=== PATIENT | female | born 1985 | race Two or more races ===

== ENCOUNTER 2017-04-21 19:06 | Emergency (ER) | payer BC, OTHER ==
[2017-04-21 19:16] VITALS: RESP 18
[2017-04-21 19:33] LABS: Glucose,Whole Blood 217 mg/dL (75-99)
[2017-04-21] MEDS ORDERED: predniSONE 20 MG TAB PO STA (19:51)
[2017-04-21] MEDS ORDERED: valACYclovir HCL 1,000 MG TABLET PO STA (19:54)
--- NOTE | 2017-04-21 19:57 | ED ---
General Adult HPI - General Chief complaint: Neuro Symptoms/Deficit Stated complaint: TIA Symptoms Time Seen by Provider: 04/21/17 19:20 Source: patient, RN notes reviewed, old records reviewed Mode of arrival: wheelchair Limitations: no limitations - History of Present Illness Initial comments: This is a 31-year-old female to the ER for evaluation of neurological complaint. Left-sided facial paralysis. Patient has a Medical history including PCO S, high blood pressure high cholesterol and diabetes. Patient had a 2 hour onset of left-sided facial paralysis, no limb or hand or leg deficit. No problems with speech. No problems swallowing. Patient states she cannot close her left eye. She has tried drinking which makes food tasted weird. Mild drooling. Patient denies any trauma. Patient states she has had history of similar symptoms before on the right side at the time called a TIA. She was admitted as Hospital 2 years ago for those symptoms. Patient denies any other complaints or headache - Related Data Home Medications Medication Instructions Recorded Confirmed ALPRAZolam [Xanax] 0.5 mg PO TID PRN 05/31/14 09/30/14 Cholecalciferol [Vitamin D3] 1,000 unit PO DAILY 05/31/14 09/30/14 FLUoxetine HCL [PROzac] 60 mg PO DAILY 05/31/14 09/30/14 Meloxicam [Mobic] 15 mg PO DAILY 05/31/14 09/30/14 Topiramate [Topamax] 25 mg PO BID 05/31/14 09/30/14 clonazePAM [KlonoPIN] 0.5 mg PO DAILY 05/31/14 09/30/14 sitaGLIPtin PHOS/metFORMIN HCL 50 - 1,000 mg PO AC-BID 05/31/14 09/30/14 [Janumet 50-1,000 mg Tablet] Previous Rx's Medication Instructions Recorded INSULIN LISPRO (humaLOG) [humaLOG 5 unit SQ AC-TID #1 vial 10/02/14 (formulary)] Insulin Glargine [Lantus] 18 unit SQ HS #1 vial 10/02/14 Verapamil Sr [Isoptin Sr] 240 mg PO DAILY #30 tablet.er 10/02/14 predniSONE 100 mg PO DAILY #14 tab 04/21/17 valACYclovir HCL [Valtrex] 1,000 mg PO Q8HR #21 tab 04/21/17 Allergies Allergy/AdvReac Type Severity Reaction Status Date / Time amlodipine besylate Allergy DIZZINESS Verified 04/21/17 19:16 [From [facility]] Review of Systems ROS Statement: Those systems with pertinent positive or pertinent negative responses have been documented in the HPI. ROS Other: All systems not noted in ROS Statement are negative. Past Medical History Past Medical History: Asthma, CVA/TIA, Diabetes Mellitus, Hyperlipidemia, Hypertension, Osteoarthritis (OA) Additional Past Medical History / Comment(s): vitamin d and B12 deficiency. 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 History of Any Multi-Drug Resistant Organisms: None Reported Past Surgical History: No Surgical Hx Reported Past Anesthesia/Blood Transfusion Reactions: No Reported Reaction Past Psychological History: Anxiety, Depression, Panic Disorder Smoking Status: Never smoker Past Alcohol Use History: None Reported Past Drug Use History: None Reported - Past Family History Mother Family Medical History: Diabetes Mellitus General Exam - General Exam Comments Initial Comments: Patient has left-sided facial paralysis, inability to close left eye, inability to raise left eyebrow, forehead paralysis Limitations: no limitations General appearance: alert, in no apparent distress Head exam: Present: atraumatic, normocephalic, normal inspection Eye exam: Present: normal appearance, PERRL, EOMI. Absent: scleral icterus, conjunctival injection, periorbital swelling ENT exam: Present: normal exam, mucous membranes moist Neck exam: Present: normal inspection. Absent: tenderness, meningismus, lymphadenopathy Respiratory exam: Present: normal lung sounds bilaterally. Absent: respiratory distress, wheezes, rales, rhonchi, stridor Cardiovascular Exam: Present: regular rate, normal rhythm, normal heart sounds. Absent: systolic murmur, diastolic murmur, rubs, gallop, clicks GI/Abdominal exam: Present: soft, normal bowel sounds. Absent: distended, tenderness, guarding, rebound, rigid Extremities exam: Present: normal inspection, full ROM, normal capillary refill. Absent: tenderness, pedal edema, joint swelling, calf tenderness Back exam: Present: normal inspection Neurological exam: Present: alert, oriented X3, CN II-XII intact Psychiatric exam: Present: normal affect, normal mood Skin exam: Present: warm, dry, intact, normal color. Absent: rash Course Vital Signs 04/21/17 19:14 Temperature 99.3 F Pulse Rate 103 H Respiratory 18 Rate Blood Pressure 163/88 O2 Sat by Pulse 98 Oximetry - Reevaluation(s) Reevaluation #1: 04/21/17 19:55 Medical record is thoroughly reviewed and patient's prior ER visit for SVT, TIA is reviewed, echo, CT brain Reevaluation #2: 04/21/17 19:56 Patient does have significant cardiovascular risk factors, there is no limb involvement in the forehead is also involved Medical Decision Making - Medical Decision Making 31-year-old Female the ER for evaluation. Patient presents today for evaluation regarding neuro deficit. Patient has positive Arredondo's palsy. Left- sided Arredondo's palsy. Patient does have 400 for else is unable to close left eye and unable to move left side of face. Patient will follow-up as an outpatient with family doctor, started on anti-viral medication as well as prednisone - Lab Data Lab Results 04/21/17 Range/Units 19:26 POC Glucose (mg/dL) 217 H (75-99) mg/dL POC Glu Consumer Safety Inspector ID Odilia Hay Disposition Clinical Impression: Arredondo's palsy Disposition: HOME SELF-CARE Condition: Good Instructions: Arredondo Palsy (ED) Prescriptions: predniSONE 100 mg PO DAILY #14 tab valACYclovir HCL [Valtrex] 1,000 mg PO Q8HR #21 tab Referrals: Garett Byers MD [Primary Care Provider] - 1-2 days
[2017-04-21 20:08] VITALS: BP 165/88; PULSE 100
[2017-04-21 20:15] VITALS: TEMP 98.5
== END 2017-04-21 20:19 | disposition home or self-care (01) ==
LOC: EC 19:06
DX: G51.0 Bell's palsy (principal); E11.9 Type 2 diabetes mellitus without complications; J45.909 Unspecified asthma, uncomplicated; M19.90 Unspecified osteoarthritis, unspecified site; F41.9 Anxiety disorder, unspecified; F32.9 Major depressive disorder, single episode, unspecified; Z86.73 Personal history of transient ischemic attack (TIA), and cerebral infarction without residual deficits; Z79.1 Long term (current) use of non-steroidal anti-inflammatories (NSAID); Z79.84 Long term (current) use of oral hypoglycemic drugs; Z79.899 Other long term (current) drug therapy; Z88.8 Allergy status to other drugs, medicaments and biological substances
CPT/HCPCS: 99284 ×2; 36415; J7512; 93005

== ENCOUNTER 2018-02-15 13:21 | Emergency (ER) | payer OTHER ==
[2018-02-15] MEDS ORDERED: SODIUM CHLORIDE 0.9% 1,000 ML IV STA (13:45)
--- NOTE | 2018-02-15 14:15 | ED ---
General Adult HPI - General Chief complaint: Overdose Stated complaint: Overdose Time Seen by Provider: 02/15/18 13:46 Source: patient, RN notes reviewed, old records reviewed Mode of arrival: ambulatory Limitations: no limitations - History of Present Illness Initial comments: 32-year-old female presents with suicide attempt. Patient took approximately 20 -30 Lexapro prior to arrival. She was having an argument with her boyfriend which prompted her to ingest these pills. She did self induce vomiting and threw up approximately 15 pills. Patient has no complaints at the time my evaluation, no abdominal pain, no nausea vomiting. No fever or chills. She denies any other ingestion. She is feeling depressed and suicidal. Ingestion was approximately one hour prior to arrival. - Related Data Home Medications Medication Instructions Recorded Confirmed ALPRAZolam [Xanax] 0.5 mg PO TID PRN 05/31/14 02/15/18 Meloxicam [Mobic] 15 mg PO DAILY 05/31/14 02/15/18 sitaGLIPtin PHOS/metFORMIN HCL 1 tab PO AC-BID 05/31/14 02/15/18 [Janumet 50-1,000 mg Tablet] Aspirin EC [Ecotrin Low Dose] 81 mg PO DAILY 02/15/18 02/15/18 Atorvastatin Calcium [Lipitor] 20 mg PO HS 02/15/18 02/15/18 Clopidogrel Bisulfate [Plavix] 75 mg PO DAILY 02/15/18 02/15/18 Hydrochlorothiazide [Hydrodiuril] 25 mg PO DAILY 02/15/18 02/15/18 Lisinopril [Zestril] 20 mg PO DAILY 02/15/18 02/15/18 Previous Rx's Medication Instructions Recorded Verapamil Sr [Isoptin Sr] 240 mg PO DAILY #30 tablet.er 10/02/14 Allergies Allergy/AdvReac Type Severity Reaction Status Date / Time amlodipine besylate AdvReac Vertigo/"Funny Verified 02/15/18 14:32 [From [facility]] feeling" Review of Systems ROS Statement: Those systems with pertinent positive or pertinent negative responses have been documented in the HPI. ROS Other: All systems not noted in ROS Statement are negative. Past Medical History Past Medical History: Asthma, CVA/TIA, Diabetes Mellitus, Hyperlipidemia, Hypertension, Osteoarthritis (OA) Additional Past Medical History / Comment(s): vitamin d and B12 deficiency. 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 History of Any Multi-Drug Resistant Organisms: None Reported Past Surgical History: No Surgical Hx Reported Past Anesthesia/Blood Transfusion Reactions: No Reported Reaction Past Psychological History: Anxiety, Depression, Panic Disorder Smoking Status: Never smoker Past Alcohol Use History: None Reported Past Drug Use History: None Reported - Past Family History Mother Family Medical History: Diabetes Mellitus General Exam Limitations: no limitations General appearance: alert, in no apparent distress Head exam: Present: atraumatic, normocephalic Eye exam: Present: normal appearance, PERRL ENT exam: Present: normal exam Neck exam: Present: normal inspection. Absent: tenderness, meningismus Respiratory exam: Present: normal lung sounds bilaterally. Absent: respiratory distress, wheezes Cardiovascular Exam: Present: regular rate, normal rhythm GI/Abdominal exam: Present: soft. Absent: distended, tenderness Extremities exam: Present: normal inspection Neurological exam: Present: alert, oriented X3, CN II-XII intact. Absent: motor sensory deficit Psychiatric exam: Present: depressed, flat affect, suicidal ideation Skin exam: Present: warm, dry, intact. Absent: cyanosis, diaphoretic Course Vital Signs 02/15/18 02/15/18 02/15/18 13:37 15:34 16:00 Temperature 98.1 F Pulse Rate 73 70 72 Respiratory 18 16 16 Rate Blood Pressure 137/85 148/93 154/64 O2 Sat by Pulse 94 L 98 98 Oximetry 02/15/18 02/15/18 18:00 19:14 Temperature 98 F Pulse Rate 80 71 Respiratory 16 17 Rate Blood Pressure 155/100 155/81 O2 Sat by Pulse 95 97 Oximetry - Reevaluation(s) Reevaluation #1: 02/15/18 15:39 Patient is medically cleared awaiting EPS evaluation. EKG Findings - EKG Comments: EKG Findings:: EKG: Normal sinus rhythm, rate of 76, MT interval 144, QRS duration 84 and QTC 362. Repeat EKG obtained at 1532, normal sinus rhythm, prolonged QT, rate of 70, MT interval 148, QRS duration 86, QTC 452, QTC 488. Medical Decision Making - Medical Decision Making 32-year-old female presenting as overdose and suicide attempt. Patient appears well, normal EKG, normal electrolytes, EDC, CMP unremarkable, urinalysis is positive for greater than 182 RBCs however patient is currently menstruating. Case is discussed with poison control, recommend repeat EKG and supportive care. She is observed in the emergency department for 6 hours with no change in her mental status. Poison control agree with medical clearance after 6 hours. Patient is evaluated by EPS, it is felt patient is safe for discharge. She will be discharged with her mother who will monitor her medications and will stay with the patient for the next several days. She does deny continued suicidal ideation when I reevaluated her. She will be discharged home with outpatient follow-up. - Lab Data Result diagrams: 02/15/18 14:08 02/15/18 14:08 Lab Results 02/15/18 02/15/18 02/15/18 Range/Units 14:08 14:08 14:08 WBC 7.7 (3.8-10.6) k/uL RBC 5.16 (3.80-5.40) m/uL Hgb 14.9 (11.4-16.0) gm/dL Hct 46.7 H (34.0-46.0) % MCV 90.5 (80.0-100.0) fL MCH 29.0 (25.0-35.0) pg MCHC 32.0 (31.0-37.0) g/dL RDW 14.1 (11.5-15.5) % Plt Count 229 (150-450) k/uL Neutrophils % 72 % Lymphocytes % 21 % Monocytes % 4 % Eosinophils % 1 % Basophils % 0 % Neutrophils # 5.5 (1.3-7.7) k/uL Lymphocytes # 1.6 (1.0-4.8) k/uL Monocytes # 0.3 (0-1.0) k/uL Eosinophils # 0.1 (0-0.7) k/uL Basophils # 0.0 (0-0.2) k/uL PT (9.0-12.0) sec INR (<1.2) Sodium 141 (137-145) mmol/L Potassium 4.4 (3.5-5.1) mmol/L Chloride 108 H (98-107) mmol/L Carbon Dioxide 26 (22-30) mmol/L Anion Gap 7 mmol/L BUN 15 (7-17) mg/dL Creatinine 0.50 L (0.52-1.04) mg/dL Est GFR (CKD-EPI)AfAm >90 (>60 ml/min/1.73 sqM) Est GFR (CKD-EPI)NonAf >90 (>60 ml/min/1.73 sqM) Glucose 160 H (74-99) mg/dL Plasma Lactic Acid Jeffrey (0.7-2.0) mmol/L Calcium 9.1 (8.4-10.2) mg/dL Magnesium (1.6-2.3) mg/dL Total Bilirubin 0.6 (0.2-1.3) mg/dL AST 17 (14-36) U/L ALT 24 (9-52) U/L Alkaline Phosphatase 73 (38-126) U/L Creatine Kinase (30-135) U/L CK-MB (CK-2) (0.0-2.4) ng/mL Total Protein 7.0 (6.3-8.2) g/dL Albumin 4.2 (3.5-5.0) g/dL Urine Color Light Red Urine Appearance Turbid H (Clear) Urine pH 5.5 (5.0-8.0) Ur Specific [place] 1.023 (1.001-1.035) Urine Protein 2+ H (Negative) Urine Glucose (UA) Trace H (Negative) Urine Ketones Negative (Negative) Urine Blood Large H (Negative) Urine Nitrite Negative (Negative) Urine Bilirubin Negative (Negative) Urine Urobilinogen <2.0 (<2.0) mg/dL Ur Leukocyte Esterase Trace H (Negative) Urine RBC >182 H (0-5) /hpf Urine WBC 18 H (0-5) /hpf Ur Squamous Epith Cells 21 H (0-4) /hpf Urine Bacteria Rare H (None) /hpf Urine Mucus Few H (None) /hpf Urine HCG, Qual (Not Detectd) Salicylates <1.0 mg/dL Urine Opiates Screen Not Detected (NotDetected) Ur Oxycodone Screen Not Detected (NotDetected) Urine Methadone Screen Not Detected (NotDetected) Ur Propoxyphene Screen Not Detected (NotDetected) Acetaminophen <10.0 ug/mL Ur Barbiturates Screen Not Detected (NotDetected) U Tricyclic Antidepress Not Detected (NotDetected) Ur Phencyclidine Scrn Not Detected (NotDetected) Ur Amphetamines Screen Not Detected (NotDetected) U Methamphetamines Scrn Not Detected (NotDetected) U Benzodiazepines Scrn Not Detected (NotDetected) Urine Cocaine Screen Not Detected (NotDetected) U Marijuana (THC) Screen Detected H (NotDetected) Serum Alcohol <10 mg/dL 02/15/18 02/15/18 02/15/18 Range/Units 14:08 14:08 14:08 WBC (3.8-10.6) k/uL RBC (3.80-5.40) m/uL Hgb (11.4-16.0) gm/dL Hct (34.0-46.0) % MCV (80.0-100.0) fL MCH (25.0-35.0) pg MCHC (31.0-37.0) g/dL RDW (11.5-15.5) % Plt Count (150-450) k/uL Neutrophils % % Lymphocytes % % Monocytes % % Eosinophils % % Basophils % % Neutrophils # (1.3-7.7) k/uL Lymphocytes # (1.0-4.8) k/uL Monocytes # (0-1.0) k/uL Eosinophils # (0-0.7) k/uL Basophils # (0-0.2) k/uL PT 9.9 (9.0-12.0) sec INR 1.0 (<1.2) Sodium (137-145) mmol/L Potassium (3.5-5.1) mmol/L Chloride (98-107) mmol/L Carbon Dioxide (22-30) mmol/L Anion Gap mmol/L BUN (7-17) mg/dL Creatinine (0.52-1.04) mg/dL Est GFR (CKD-EPI)AfAm (>60 ml/min/1.73 sqM) Est GFR (CKD-EPI)NonAf (>60 ml/min/1.73 sqM) Glucose (74-99) mg/dL Plasma Lactic Acid Jeffrey 0.9 (0.7-2.0) mmol/L Calcium (8.4-10.2) mg/dL Magnesium (1.6-2.3) mg/dL Total Bilirubin (0.2-1.3) mg/dL AST (14-36) U/L ALT (9-52) U/L Alkaline Phosphatase (38-126) U/L Creatine Kinase (30-135) U/L CK-MB (CK-2) (0.0-2.4) ng/mL Total Protein (6.3-8.2) g/dL Albumin (3.5-5.0) g/dL Urine Color Urine Appearance (Clear) Urine pH (5.0-8.0) Ur Specific [place] (1.001-1.035) Urine Protein (Negative) Urine Glucose (UA) (Negative) Urine Ketones (Negative) Urine Blood (Negative) Urine Nitrite (Negative) Urine Bilirubin (Negative) Urine Urobilinogen (<2.0) mg/dL Ur Leukocyte Esterase (Negative) Urine RBC (0-5) /hpf Urine WBC (0-5) /hpf Ur Squamous Epith Cells (0-4) /hpf Urine Bacteria (None) /hpf Urine Mucus (None) /hpf Urine HCG, Qual Not Detected (Not Detectd) Salicylates mg/dL Urine Opiates Screen (NotDetected) Ur Oxycodone Screen (NotDetected) Urine Methadone Screen (NotDetected) Ur Propoxyphene Screen (NotDetected) Acetaminophen ug/mL Ur Barbiturates Screen (NotDetected) U Tricyclic Antidepress (NotDetected) Ur Phencyclidine Scrn (NotDetected) Ur Amphetamines Screen (NotDetected) U Methamphetamines Scrn (NotDetected) U Benzodiazepines Scrn (NotDetected) Urine Cocaine Screen (NotDetected) U Marijuana (THC) Screen (NotDetected) Serum Alcohol mg/dL 02/15/18 02/15/18 02/15/18 Range/Units 14:08 14:08 14:08 WBC (3.8-10.6) k/uL RBC (3.80-5.40) m/uL Hgb (11.4-16.0) gm/dL Hct (34.0-46.0) % MCV (80.0-100.0) fL MCH (25.0-35.0) pg MCHC (31.0-37.0) g/dL RDW (11.5-15.5) % Plt Count (150-450) k/uL Neutrophils % % Lymphocytes % % Monocytes % % Eosinophils % % Basophils % % Neutrophils # (1.3-7.7) k/uL Lymphocytes # (1.0-4.8) k/uL Monocytes # (0-1.0) k/uL Eosinophils # (0-0.7) k/uL Basophils # (0-0.2) k/uL PT (9.0-12.0) sec INR (<1.2) Sodium (137-145) mmol/L Potassium (3.5-5.1) mmol/L Chloride (98-107) mmol/L Carbon Dioxide (22-30) mmol/L Anion Gap mmol/L BUN (7-17) mg/dL Creatinine (0.52-1.04) mg/dL Est GFR (CKD-EPI)AfAm (>60 ml/min/1.73 sqM) Est GFR (CKD-EPI)NonAf (>60 ml/min/1.73 sqM) Glucose (74-99) mg/dL Plasma Lactic Acid Jeffrey (0.7-2.0) mmol/L Calcium (8.4-10.2) mg/dL Magnesium 1.6 (1.6-2.3) mg/dL Total Bilirubin (0.2-1.3) mg/dL AST (14-36) U/L ALT (9-52) U/L Alkaline Phosphatase (38-126) U/L Creatine Kinase 39 (30-135) U/L CK-MB (CK-2) 0.5 (0.0-2.4) ng/mL Total Protein (6.3-8.2) g/dL Albumin (3.5-5.0) g/dL Urine Color Urine Appearance (Clear) Urine pH (5.0-8.0) Ur Specific [place] (1.001-1.035) Urine Protein (Negative) Urine Glucose (UA) (Negative) Urine Ketones (Negative) Urine Blood (Negative) Urine Nitrite (Negative) Urine Bilirubin (Negative) Urine Urobilinogen (<2.0) mg/dL Ur Leukocyte Esterase (Negative) Urine RBC (0-5) /hpf Urine WBC (0-5) /hpf Ur Squamous Epith Cells (0-4) /hpf Urine Bacteria (None) /hpf Urine Mucus (None) /hpf Urine HCG, Qual (Not Detectd) Salicylates mg/dL Urine Opiates Screen (NotDetected) Ur Oxycodone Screen (NotDetected) Urine Methadone Screen (NotDetected) Ur Propoxyphene Screen (NotDetected) Acetaminophen ug/mL Ur Barbiturates Screen (NotDetected) U Tricyclic Antidepress (NotDetected) Ur Phencyclidine Scrn (NotDetected) Ur Amphetamines Screen (NotDetected) U Methamphetamines Scrn (NotDetected) U Benzodiazepines Scrn (NotDetected) Urine Cocaine Screen (NotDetected) U Marijuana (THC) Screen (NotDetected) Serum Alcohol mg/dL Disposition Clinical Impression: Drug overdose, Depression Disposition: HOME SELF-CARE Condition: Good Instructions: Depression (ED), Adult Overdose (ED) Additional Instructions: Please follow up with community mental health, return with any worsening or changing symptoms. Is patient prescribed a controlled substance at d/c from ED?: No Referrals: Garett Byers MD [Primary Care Provider] - 1-2 days Time of Disposition: 18:45
[2018-02-15 14:41] LABS: Prothrombin Time 9.9 sec (9.0-12.0)
[2018-02-15 14:44] LABS: ALT 24 U/L (9-52); AST 17 U/L (14-36); Acetaminophen <10.0 ug/mL; Albumin 4.2 g/dL (3.5-5.0); Alcohol <10 mg/dL; Alkaline Phosphatase 73 U/L (38-126); Anion Gap 7 mmol/L; Blood Urea Nitrogen 15 mg/dL (7-17); Calcium 9.1 mg/dL (8.4-10.2); Carbon Dioxide 26 mmol/L (22-30); Chloride 108 mmol/L (98-107); Glucose 160 mg/dL (74-99); Potassium 4.4 mmol/L (3.5-5.1); Salicylate <1.0 mg/dL; Sodium 141 mmol/L (137-145); Total Bilirubin 0.6 mg/dL (0.2-1.3)
[2018-02-15 14:52] LABS: Basophils % (A) 0 %; Eosinophils # (A) 0.1 k/uL (0-0.7); Eosinophils % (A) 1 %; HCT 46.7 % (34.0-46.0); HGB 14.9 gm/dL (11.4-16.0); Lymphocytes # (A) 1.6 k/uL (1.0-4.8); Lymphocytes % (A) 21 %; MCV 90.5 fL (80.0-100.0); Monocytes # (A) 0.3 k/uL (0-1.0); Monocytes % (A) 4 %; Neutrophils # (A) 5.5 k/uL (1.3-7.7); Neutrophils % (A) 72 %; Platelet Count 229 k/uL (150-450); RBC 5.16 m/uL (3.80-5.40); RDW 14.1 % (11.5-15.5); WBC 7.7 k/uL (3.8-10.6)
[2018-02-15 14:54] LABS: Appearance,Urine Turbid (Clear); Bacteria,Urine Rare /hpf; Bilirubin,Urine Negative (Negative); Blood,Urine Large (Negative); Color,Urine Light Red; Glucose,Urine (UA) Trace (Negative); Ketones,Urine Negative (Negative); Leukocyte Esterase,Urine Trace (Negative); Mucus,Urine Few /hpf; Nitrite,Urine Negative (Negative); PH, Urine 5.5 (5.0-8.0); Protein,Urine 2+ (Negative); RBC,Urine >182 /hpf (0-5); Specific Gravity,Urine 1.023 (1.001-1.035); Squamous Epithelial Cell,Urine 21 /hpf (0-4); Urobilinogen,Urine <2.0 mg/dL (<2.0); WBC,Urine 18 /hpf (0-5)
[2018-02-15 15:15] LABS: Amphetamine Screen,Urine Not Detected (NotDetected); Barbiturate Screen,Urine Not Detected (NotDetected); Benzodiazepines Screen,Urine Not Detected (NotDetected); Cocaine Screen,Urine Not Detected (NotDetected); Methadone Screen, Urine Not Detected (NotDetected); Opiate Screen,Urine Not Detected (NotDetected); Oxycodone Screen, Urine Not Detected (NotDetected); Phencyclidine Screen,Urine Not Detected (NotDetected); Tricyclic Antidepressant,Urine Not Detected (NotDetected); Urn Cannabinoid Scrn Detected (NotDetected)
[2018-02-15] MEDS ORDERED: SODIUM CHLORIDE 0.9% 1,000 ML IV SCH (17:00)
[2018-02-15] MEDS ORDERED: ACETAMINOPHEN TAB 500 MG TAB PO STA (17:27)
[2018-02-15 18:24] VITALS: TEMP 98
[2018-02-15 19:15] VITALS: BP 155/81; PULSE 71; RESP 17
== END 2018-02-15 19:15 | disposition home or self-care (01) ==
LOC: EC 13:21
DX: T43.222A Poisoning by selective serotonin reuptake inhibitors, intentional self-harm, initial encounter (principal); F32.9 Major depressive disorder, single episode, unspecified; E11.9 Type 2 diabetes mellitus without complications; E78.5 Hyperlipidemia, unspecified; I10 Essential (primary) hypertension; M19.90 Unspecified osteoarthritis, unspecified site; F41.0 Panic disorder [episodic paroxysmal anxiety]; Z86.73 Personal history of transient ischemic attack (TIA), and cerebral infarction without residual deficits; Z79.82 Long term (current) use of aspirin; Z79.01 Long term (current) use of anticoagulants; Z79.1 Long term (current) use of non-steroidal anti-inflammatories (NSAID); Z79.899 Other long term (current) drug therapy; Z79.84 Long term (current) use of oral hypoglycemic drugs; Z88.8 Allergy status to other drugs, medicaments and biological substances
CPT/HCPCS: 36415; 80053; 80306; 80320; 81001; 81025; 82075; 82550; 82553; 83520; 83605; 83735; 85025; 85610; 93005; 96360; 96361; 99285

== ENCOUNTER → 2018-09-20 | Outpatient (CLI) | payer OTHER ==
--- NOTE | 2018-09-20 11:07 | XR ---
EXAMINATION TYPE: XR knee limited LT DATE OF EXAM: 09/20/2018 CLINICAL HISTORY: Pain for one week. TECHNIQUE: 2 views of the left knee are obtained. COMPARISON: None. FINDINGS: There is no acute fracture/dislocation evident in left knee. There is moderate medial tibi ofemoral and lateral tibiofemoral compartments spurring and narrowing. Mild lateral tibiofemoral com partment narrowing is seen. There are large spurs or calcifications from anterior superior and anteri or inferior patella. The overlying soft tissue appears unremarkable. IMPRESSION: As above, quite pronounced findings for patient's age.
== END | disposition home or self-care (01) ==
LOC: RADXRMAIN 10:09
PROVIDERS: ATTEND Nurse Practitioner Adult Health
DX: M25.562 Pain in left knee (principal)

== ENCOUNTER 2018-10-13 13:10 | Emergency (ER) | payer OTHER ==
[2018-10-13 13:17] VITALS: BP 153/88; PULSE 101; RESP 18; TEMP 97.6
[2018-10-13 13:31] LABS: Glucose,Whole Blood 269 mg/dL (75-99)
[2018-10-13 13:58] LABS: Basophils % (A) 1 %; Eosinophils # (A) 0.1 k/uL (0-0.7); Eosinophils % (A) 2 %; HGB 14.8 gm/dL (11.4-16.0); Lymphocytes # (A) 2.2 k/uL (1.0-4.8); Lymphocytes % (A) 29 %; MCH 28.8 pg (25.0-35.0); MCV 87.3 fL (80.0-100.0); Mean Platelet Volume 7.9; Monocytes # (A) 0.4 k/uL (0-1.0); Monocytes % (A) 6 %; Neutrophils # (A) 4.4 k/uL (1.3-7.7); Neutrophils % (A) 60 %; Platelet Count 229 k/uL (150-450); RBC 5.15 m/uL (3.80-5.40); RDW 14.6 % (11.5-15.5); WBC 7.3 k/uL (3.8-10.6)
[2018-10-13 14:01] LABS: ALT 40 U/L (9-52); AST 17 U/L (14-36); Albumin 3.8 g/dL (3.5-5.0); Alkaline Phosphatase 84 U/L (38-126); Anion Gap 7 mmol/L; Blood Urea Nitrogen 10 mg/dL (7-17); Calcium 9.1 mg/dL (8.4-10.2); Carbon Dioxide 31 mmol/L (22-30); Chloride 104 mmol/L (98-107); Glucose 285 mg/dL (74-99); Potassium 3.5 mmol/L (3.5-5.1); Sodium 142 mmol/L (137-145); Total Bilirubin 0.6 mg/dL (0.2-1.3); Total Protein 6.5 g/dL (6.3-8.2)
--- NOTE | 2018-10-13 14:05 | CT ---
EXAMINATION TYPE: CT brain wo con for TPA DATE OF EXAM: 10/13/2018 COMPARISON: 09/30/2014 INDICATION: Lt facial droop. DLP: 3276.8 (brain, CTA head and neck) mGycm, Automated exposure control for dose reduction was used. CONTRAST: None CT of the brain is performed utilizing 3 mm thick sections through the posterior fossa and 3 mm thick sections through the remaining calvarium. Study is performed within 24 hours of arrival to the hosp ital. No abnormal hyperdensity is present to suggest an acute intracranial hemorrhage. No mass lesion is evident. There is interval development of hypodensity in the periventricular white matter. Some subcortical hy podensity is in the left frontal lobe. Series 201 image 27. Findings are nonspecific but could be rel ated to microvascular ischemic change. Subcortical infarcts could be considered. No edema is evident suggesting these are more likely old. Adjacent to the left frontal lobe near the anterior horn is a p unctate hyperdensity measuring 0.2 cm and 67 Hounsfield units. Small calcification is suspected. Carcamo lew, small petechial hemorrhage is also within the differential. Report was called case discussed wit h Dr. Wise by Dr. Escobedo at the time of 1359 10/13/2018. In discussion, patient reports history of a brain mass. This area could be associated with patient's reported mass which may be associated with the calcification. Discrete mass however is not identified. Ventricles and sulci are appropriate for the patient age. Paranasal sinuses and mastoid air cells within the [id number] are clear. IMPRESSIONS: 1. Scattered periventricular white matter hypodensities likely related to more chronic white matter ischemic changes. 2. There is a punctate hyperdensity in the left nunez radiata measuring 67 Hounsfield units. Petechi al hemorrhage is not entirely excluded. MRI may be useful for further differentiation. Patient is rep orted to have a brain mass on the left side. This is not clearly delineated on the current imaging, b ut may be associated with this calcification.
[2018-10-13 14:08] LABS: INR 0.9 (<1.2); Prothrombin Time 9.6 sec (9.0-12.0)
[2018-10-13 14:13] LABS: Partial Thromboplastin Time 21.4 sec (22.0-30.0)
--- NOTE | 2018-10-13 14:18 | ED ---
Neuro HPI - General Chief Complaint: Neuro Symptoms/Deficit Stated Complaint: facial droop Time Seen by Provider: 10/13/18 13:24 Source: patient Mode of arrival: ambulatory Limitations: no limitations - History of Present Illness Is the patient presenting with stroke symptoms?: Yes Last Known Well Date: 10/13/18 Last Known Well Time: 11:30 (onset 11:45) Onset/Timin -: hour(s) Initial Comments: 33-year-old female past history of hypertension, previous CVA, Arredondo's palsy, MS, diabetes presents today for chief complaint of right-sided facial droop 2 hours. Patient states that she's had multiple diagnoses in the past as far as neurological past medical history. Patient states she's had a previous CVA with residual speech deficits. Patient states there has been no changes in her speech today however around 11:45 AM she noted right-sided facial droop of the lower aspect of her face. She states she is unsure if this is her Arredondo's palsy or possible stroke and presents emergency department for evaluation. Patient de nies any headache nausea, vomiting, dizziness. She denies any head injury she denies any numbness tingling or loss sensation of the face upper or lower extremities. Patient denies any difficulty walking. Patient denies any diplopia or visual change or vision loss, difficulty forming sentences, memory changes. Patient states she has not been compliant with her blood pressure medications. Patient does have significant elevation of blood pressure upon arrival today. Patient denies history of aneurysm. Patient states she has not seen a neurologist in quite some time however has been evaluated by her primary care provider. Remaining review of systems negative. Upon arrival HR and BP mildly elevated .Pt appears well no acute distess. Obvious right lower facial droop. Patient denies experiencing any symptoms prior to onset today. - Related Data Home Medications: Home Medications Medication Instructions Recorded Confirmed ALPRAZolam [Xanax] 0.5 mg PO TID PRN 05/31/14 10/13/18 Meloxicam [Mobic] 15 mg PO DAILY 05/31/14 10/13/18 sitaGLIPtin PHOS/metFORMIN HCL 1 tab PO AC-BID 05/31/14 10/13/18 [Janumet 50-1,000 mg Tablet] Aspirin EC [Ecotrin Low Dose] 81 mg PO DAILY 02/15/18 10/13/18 Atorvastatin Calcium [Lipitor] 20 mg PO HS 02/15/18 10/13/18 Clopidogrel Bisulfate [Plavix] 75 mg PO DAILY 02/15/18 10/13/18 Hydrochlorothiazide [Hydrodiuril] 25 mg PO DAILY 02/15/18 10/13/18 Lisinopril [Zestril] 20 mg PO DAILY 02/15/18 10/13/18 Cholecalciferol [Vitamin D3] 1,000 unit PO DAILY 10/13/18 10/13/18 Cyanocobalamin (Vitamin B-12) 1,000 mcg PO DAILY 10/13/18 10/13/18 [Vitamin B-12] Empagliflozin [Jardiance] 25 mg PO DAILY 10/13/18 10/13/18 Escitalopram [Lexapro] 20 mg PO DAILY 10/13/18 10/13/18 Loratadine [Claritin] 10 mg PO DAILY 10/13/18 10/13/18 QUEtiapine [SEROquel] 50 mg PO HS 10/13/18 10/13/18 busPIRone HCl [Buspar] 10 mg PO BID 10/13/18 10/13/18 lamoTRIgine [LaMICtal] 25 mg PO DAILY 10/13/18 10/13/18 Previous Rx's Medication Instructions Recorded Verapamil Sr [Isoptin Sr] 240 mg PO DAILY #30 tablet.er 10/02/14 Allergies/Adverse Reactions: Allergies Allergy/AdvReac Type Severity Reaction Status Date / Time amlodipine besylate AdvReac Vertigo/"Funny Verified 10/13/18 13:44 [From [facility]] feeling" Review of Systems ROS Statement: Those systems with pertinent positive or pertinent negative responses have been documented in the HPI. ROS Other: All systems not noted in ROS Statement are negative. General Exam - General Exam Comments Initial Comments: General: The patient is awake and alert, in no distress. Eye: +3 mm pupils are equal, round and reactive to light, extra-ocular movements are intact. No APD, no disconjugate gaze. No nystagmus. There is normal conjunctiva bilaterally. No signs of icterus. Ears, nose, mouth and throat: There are moist mucous membranes and no oral lesions. Neck: The neck is supple, there is no tenderness or JVD. Cardiovascular: There is a regular rate and rhythm. No murmur, rub or gallop is appreciated. Respiratory: Lungs are clear to auscultation, respirations are non-labored, breath sounds are equal. No wheezes, stridor, rales, or rhonchi. Gastrointestinal: Obese, Soft, non-distended, non-tender abdomen without masses or organomegaly noted. There is no rebound or guarding present. Bowel sounds are unremarkable. Musculoskeletal: Normal ROM, no tenderness. Strength 5/5. Sensation intact. Radial pulses equal bilaterally 2+. Neurological: A&O x 3. CN II-XII intact aside from right lower facial droop that is forehead sparing, mild in nature, memory intact to immediately, intermediate and group home recall. Able to follow simple verbal. Able to name a common object (pen). High quality, labial (pa) and lingual (la) speech. Low quality posterior pharynx/larynx (ga) voice sounds. Able to express general knowledge (days in a week). No hemineglect or inattention noted. Finger agnosia (-) and spatially oriented. Light touch and temperature sensation present over the face, chest, abdomen, back, UE bilaterally, and LE bilaterally. Able to localize point during point localization b/l and extinction. No visible bulk atrophy, hypertrophy, fasciculations, or myoclonus of the UE or LE b/l. Full PROM in UE and LE b/l. Bilateral muscle strength 5/5 for the following muscles: deltoid, biceps, triceps, brachioradialis, wrist extensors/flexor, hip flexor, hip abductors/adductors, hamstrings, quadriceps, feet dorsiflexors/plantar flexors. Finger to nose, finger to the examiners finger, and heel to warren coordinated and accurate b/l. Coordinated and even demonstration of hand flip, finger to thumb, and toe tap b/l. (-) Romberg. (-) pronator drift. No nuchal rigidity. (-) Brudzinskis and Kernig signs. Skin: Skin is warm and dry and no rashes or lesions are noted. Psychiatric: Cooperative, appropriate mood & affect, normal judgment. Limitations: no limitations Stroke MDM - Lab Data Result diagrams: 10/13/18 13:35 10/13/18 13:35 Lab Results 10/13/18 10/13/18 10/13/18 Range/Units 13:30 13:35 13:35 WBC 7.3 (3.8-10.6) k/uL RBC 5.15 (3.80-5.40) m/uL Hgb 14.8 (11.4-16.0) gm/dL Hct 45.0 (34.0-46.0) % MCV 87.3 (80.0-100.0) fL MCH 28.8 (25.0-35.0) pg MCHC 33.0 (31.0-37.0) g/dL RDW 14.6 (11.5-15.5) % Plt Count 229 (150-450) k/uL Neutrophils % 60 % Lymphocytes % 29 % Monocytes % 6 % Eosinophils % 2 % Basophils % 1 % Neutrophils # 4.4 (1.3-7.7) k/uL Lymphocytes # 2.2 (1.0-4.8) k/uL Monocytes # 0.4 (0-1.0) k/uL Eosinophils # 0.1 (0-0.7) k/uL Basophils # 0.0 (0-0.2) k/uL PT (9.0-12.0) sec INR (<1.2) APTT (22.0-30.0) sec Sodium 142 (137-145) mmol/L Potassium 3.5 (3.5-5.1) mmol/L Chloride 104 (98-107) mmol/L Carbon Dioxide 31 H (22-30) mmol/L Anion Gap 7 mmol/L BUN 10 (7-17) mg/dL Creatinine 0.50 L (0.52-1.04) mg/dL Est GFR (CKD-EPI)AfAm >90 (>60 ml/min/1.73 sqM) Est GFR (CKD-EPI)NonAf >90 (>60 ml/min/1.73 sqM) Glucose 285 H (74-99) mg/dL POC Glucose (mg/dL) 269 H (75-99) mg/dL POC Glu Babbitter ID Delores Stringer A Calcium 9.1 (8.4-10.2) mg/dL Total Bilirubin 0.6 (0.2-1.3) mg/dL AST 17 (14-36) U/L ALT 40 (9-52) U/L Alkaline Phosphatase 84 (38-126) U/L Total Protein 6.5 (6.3-8.2) g/dL Albumin 3.8 (3.5-5.0) g/dL 10/13/18 Range/Units 13:35 WBC (3.8-10.6) k/uL RBC (3.80-5.40) m/uL Hgb (11.4-16.0) gm/dL Hct (34.0-46.0) % MCV (80.0-100.0) fL MCH (25.0-35.0) pg MCHC (31.0-37.0) g/dL RDW (11.5-15.5) % Plt Count (150-450) k/uL Neutrophils % % Lymphocytes % % Monocytes % % Eosinophils % % Basophils % % Neutrophils # (1.3-7.7) k/uL Lymphocytes # (1.0-4.8) k/uL Monocytes # (0-1.0) k/uL Eosinophils # (0-0.7) k/uL Basophils # (0-0.2) k/uL PT 9.6 (9.0-12.0) sec INR 0.9 (<1.2) APTT 21.4 L (22.0-30.0) sec Sodium (137-145) mmol/L Potassium (3.5-5.1) mmol/L Chloride (98-107) mmol/L Carbon Dioxide (22-30) mmol/L Anion Gap mmol/L BUN (7-17) mg/dL Creatinine (0.52-1.04) mg/dL Est GFR (CKD-EPI)AfAm (>60 ml/min/1.73 sqM) Est GFR (CKD-EPI)NonAf (>60 ml/min/1.73 sqM) Glucose (74-99) mg/dL POC Glucose (mg/dL) (75-99) mg/dL POC Glu Babbitter ID Calcium (8.4-10.2) mg/dL Total Bilirubin (0.2-1.3) mg/dL AST (14-36) U/L ALT (9-52) U/L Alkaline Phosphatase (38-126) U/L Total Protein (6.3-8.2) g/dL Albumin (3.5-5.0) g/dL - NIH Stroke Scale 1a. Level of Consciousness: (0) alert 1b. LOC Questions: (0) answers correctly 1c. LOC Commands: (0) performs tasks correctly 2. Best Gaze: (0) normal 3. Visual: (0) no visual loss 4. Facial Palsy: (2) partial paralysis 5a. Motor Arm Left: (0) no drift 5b. Motor Arm Right: (0) no drift 6a. Motor Leg Left: (0) no drift 6b. Motor Leg Right: (0) no drift 7. Limb Ataxia: (0) absent 8. Sensory: (0) normal 9. Best Language: (0) no aphasia 10. Dysarthria: (1) mild/moderate dysarthria 11. Extinction/Inattention: (0) no abnormality NIH Score total: 3 (Pt dysarthria is said to be residual from previous CVA per family) - Medical Decision Making 33-year-old male presented for 2 hours of right-sided facial droop. Patient has extensive neurological history. Including recent diagnosis of MS in 2018. Patient has had previous TIA/CVA/Arredondo's palsy, patient states she is residual deficits from initial CVA. Which is dysarthria, denies any focalized weakness of the upper or lower extremities. Upon arrival patient's NIH to for partial facial droop. Is considered mild dysarthria from previous CVA and age 3. Patient has not a candidate for TPA at this time. On-call stroke physician Dr. Beth was contacted. I discussed the case. He reviewed imaging studies, he states he has not positive the significance of the small hyperdensity near the left ventral forearm. 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 He recommended transfer to [facility] for ER to ER for stroke evaluation and admission to medicine with neurosurgery on consult. I was contacted by Dr. Lane in the emergency department at [facility]. She accepted admission after discussing the case in detail. At this time do feel patient is stable for transfer. Patient has not developed any additional focal neurological deficits since arrival in the emergency department this afternoon. Pt is agreeable with transfer. Proper course the patient stating the emergency department I did discuss case with him provider Dr. Soliman. He is agreeable to plan of care as well as patient's discharge. No further instruction from neurosurgeon Dr. Beth. Patient transferred to outside facility by EMS appearing well. - EKG Data -: EKG Interpreted by Me A 12-lead EKG was performed and shows the following: Rate is 92 bpm, and rhythm is normal sinus. There are normal QRS complexes and normal R-wave progression. ST segments have no elevation or depression, and ME segments appear normal. ME interval 148 ms, QRS hindu 88 ms, QT/QTC 362/447 ms. 10/13/18 14:33 Past Medical History Past Medical History: Asthma, CVA/TIA, Diabetes Mellitus, Hyperlipidemia, Hypertension, Osteoarthritis (OA) Additional Past Medical History / Comment(s): vitamin d and B12 deficiency. 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, bells palsy History of Any Multi-Drug Resistant Organisms: None Reported Past Surgical History: No Surgical Hx Reported Past Anesthesia/Blood Transfusion Reactions: No Reported Reaction Past Psychological History: Anxiety, Depression, Panic Disorder Smoking Status: Never smoker Past Alcohol Use History: None Reported Past Drug Use History: None Reported - Past Family History Mother Family Medical History: Diabetes Mellitus Course Vital Signs 10/13/18 13:14 Temperature 97.6 F Pulse Rate 101 H Respiratory 18 Rate Blood Pressure 153/88 O2 Sat by Pulse 97 Oximetry Disposition Clinical Impression: Facial droop, CVA (cerebral vascular accident) Disposition: OTHER INSTITUTION NOT DEFINED Condition: Serious Is patient prescribed a controlled substance at d/c from ED?: No Referrals: Garett Byers MD [Primary Care Provider] - 1-2 days Time of Disposition: 14:42 - Out of Hospital Transfer - Req. Specs Out of Hospital Transfer - Requested Specifics: Other Emergency Center ([facility], Dr Lane)
--- NOTE | 2018-10-13 14:45 | CT ---
EXAMINATION TYPE: CT angio head neck DATE OF EXAM: 10/13/2018 HISTORY: Lt facial droop COMPARISON: None CT DLP: 3276.8 (brain, CTA head and neck) mGycm. Automated Exposure Control for Dose Reduction was U tilized. TECHNIQUE: CTA scan of the neck is performed with IV Contrast, patient injected with 65 mL of Isovue 370, axial images are obtained, coronal and sagittal reformatted images are reviewed. Three-D recons tructed images are created on an independent workstation and reviewed. FINDINGS: Carotid/Vascular Structures: There is a three-vessel arch. The common carotid arteries bifurcate into internal and extra carotid arteries. No stenosis is present. The vertebral arteries are codominant. [place] of [place]: Vertebral basilar system appears normal. Posterior cerebral vasculature is unremark able. Despite 2 separate computer is in progress good reconstruction through the bolus was not obtain ed. The right internal carotid artery bifurcates into A1 and M1 segments. The left internal carotid a rtery branch and the A1 segment is not identified. Right middle cerebral artery branches appear florian l. There is some suggestion of some fusiform prominence of the distal middle cerebral artery branch., Series 509 image 9-10. The left middle cerebral artery branches otherwise appear normal. IMPRESSION: 1. Some fusiform prominence of the middle cerebral artery on the left may be present. Puga Aneurysm is not identified. 2. There is limited evaluation of the algaaciq of [place]. 3. No significant flow-limiting stenosis bilateral carotid bifurcations.
--- NOTE | 2018-10-13 15:06 | XR ---
EXAMINATION TYPE: XR chest 2V DATE OF EXAM: 10/13/2018 COMPARISON: NONE TECHNIQUE: PA and lateral views submitted. HISTORY: Altered mental status FINDINGS: Limited exam. The lungs are clear and there is no pneumothorax, pleural effusion, or focal pneumonia. Hypertrophi c change of the spine. Limited inspiration. This limits assessment of the interstitium. No obvious co nsolidation given the limitation IMPRESSION: 1. No acute process.
== END 2018-10-13 16:02 | disposition short-term general hospital (02) ==
LOC: EC 13:10
DX: I63.9 Cerebral infarction, unspecified (principal); R29.810 Facial weakness; R47.1 Dysarthria and anarthria; R29.703 NIHSS score 3; E11.9 Type 2 diabetes mellitus without complications; E78.5 Hyperlipidemia, unspecified; I10 Essential (primary) hypertension; M19.90 Unspecified osteoarthritis, unspecified site; E55.9 Vitamin D deficiency, unspecified; E53.8 Deficiency of other specified B group vitamins; G35 Multiple sclerosis; Z88.8 Allergy status to other drugs, medicaments and biological substances; Z79.02 Long term (current) use of antithrombotics/antiplatelets; Z79.1 Long term (current) use of non-steroidal anti-inflammatories (NSAID); Z79.82 Long term (current) use of aspirin; Z79.84 Long term (current) use of oral hypoglycemic drugs; Z79.899 Other long term (current) drug therapy; Z86.69 Personal history of other diseases of the nervous system and sense organs; Z91.14 Patient's other noncompliance with medication regimen
CPT/HCPCS: 99285; 36415; 93005; 80053; 84484; 85025; 85610; 85730; 84702; 71046; 70496; 70450; 70498; Q9967

== ENCOUNTER 2019-07-25 18:43 | Emergency (ER) | payer OTHER ==
[2019-07-25 18:59] VITALS: TEMP 98
[2019-07-25] MEDS ORDERED: ORPHENADRINE 30 MG/ML 2 ML VIAL IM STA (19:20)
[2019-07-25] MEDS ORDERED: KETOROLAC 60 MG/2 ML VIAL IM STA (19:20)
[2019-07-25] MEDS ORDERED: HYDROcodone/APAP 5-325MG 1 EACH TAB PO STA (19:20)
--- NOTE | 2019-07-25 19:57 | ED ---
Back Pain HPI - General Chief Complaint: Back Pain/Injury Stated Complaint: back pain Time Seen by Provider: 07/25/19 19:03 Source: patient, RN notes reviewed, old records reviewed Limitations: no limitations - History of Present Illness Initial Comments: 33-year-old female presented today for evaluation for lower back pain. She's been having back problems for the past few years. Pain to be worse after lifting a laundry basket. She complains of being in her lower back. She denies any saddle anesthesias. Denies any recent fall or trauma. No abdominal pain fevers or chills. Patient at this time states that she has not had any imaging on her back quite some time. - Related Data Home Medications Medication Instructions Recorded Confirmed ALPRAZolam [Xanax] 0.5 mg PO TID PRN 05/31/14 10/13/18 Meloxicam [Mobic] 15 mg PO DAILY 05/31/14 10/13/18 sitaGLIPtin PHOS/metFORMIN HCL 1 tab PO AC-BID 05/31/14 10/13/18 [Janumet 50-1,000 mg Tablet] Aspirin EC [Ecotrin Low Dose] 81 mg PO DAILY 02/15/18 10/13/18 Atorvastatin Calcium [Lipitor] 20 mg PO HS 02/15/18 10/13/18 Clopidogrel Bisulfate [Plavix] 75 mg PO DAILY 02/15/18 10/13/18 Hydrochlorothiazide [Hydrodiuril] 25 mg PO DAILY 02/15/18 10/13/18 Lisinopril [Zestril] 20 mg PO DAILY 02/15/18 10/13/18 Cholecalciferol [Vitamin D3] 1,000 unit PO DAILY 10/13/18 10/13/18 Cyanocobalamin (Vitamin B-12) 1,000 mcg PO DAILY 10/13/18 10/13/18 [Vitamin B-12] Empagliflozin [Jardiance] 25 mg PO DAILY 10/13/18 10/13/18 Escitalopram [Lexapro] 20 mg PO DAILY 10/13/18 10/13/18 Loratadine [Claritin] 10 mg PO DAILY 10/13/18 10/13/18 QUEtiapine [SEROquel] 50 mg PO HS 10/13/18 10/13/18 busPIRone HCl [Buspar] 10 mg PO BID 10/13/18 10/13/18 lamoTRIgine [LaMICtal] 25 mg PO DAILY 10/13/18 10/13/18 Previous Rx's Medication Instructions Recorded Verapamil Sr [Isoptin Sr] 240 mg PO DAILY #30 tablet.er 10/02/14 Cyclobenzaprine [Flexeril] 10 mg PO TID #20 tab 07/25/19 Ibuprofen 600 mg PO TID #20 tablet 07/25/19 Allergies Allergy/AdvReac Type Severity Reaction Status Date / Time amlodipine besylate AdvReac Vertigo/"Funny Verified 07/25/19 18:55 [From [facility]] feeling" Review of Systems ROS Statement: Those systems with pertinent positive or pertinent negative responses have been documented in the HPI. ROS Other: All systems not noted in ROS Statement are negative. Past Medical History Past Medical History: Asthma, CVA/TIA, Diabetes Mellitus, Hyperlipidemia, Hypertension, Osteoarthritis (OA) Additional Past Medical History / Comment(s): vitamin d and B12 deficiency. 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, bells palsy History of Any Multi-Drug Resistant Organisms: None Reported Past Surgical History: No Surgical Hx Reported Past Anesthesia/Blood Transfusion Reactions: No Reported Reaction Past Psychological History: Anxiety, Depression, Panic Disorder Smoking Status: Never smoker Past Alcohol Use History: None Reported Past Drug Use History: None Reported - Past Family History Mother Family Medical History: Diabetes Mellitus General Exam - General Exam Comments Initial Comments: Morbidly obese 33-year-old female. Limitations: no limitations Head exam: Present: atraumatic, normocephalic, normal inspection Eye exam: Present: normal appearance, PERRL, EOMI. Absent: scleral icterus, conjunctival injection, periorbital swelling ENT exam: Present: normal exam, mucous membranes moist Neck exam: Present: normal inspection. Absent: tenderness, meningismus, lymphadenopathy Respiratory exam: Present: normal lung sounds bilaterally. Absent: respiratory distress, wheezes, rales, rhonchi, stridor Cardiovascular Exam: Present: regular rate, normal rhythm, normal heart sounds. Absent: systolic murmur, diastolic murmur, rubs, gallop, clicks GI/Abdominal exam: Present: soft, normal bowel sounds. Absent: distended, tenderness, guarding, rebound, rigid Extremities exam: Present: normal inspection, full ROM, normal capillary refill. Absent: tenderness, pedal edema, joint swelling, calf tenderness Back exam: Present: normal inspection, tenderness, paraspinal tenderness (lumbar). Absent: full ROM Neurological exam: Present: alert, oriented X3, CN II-XII intact Psychiatric exam: Present: normal affect, normal mood Skin exam: Present: warm, dry, intact, normal color. Absent: rash Course Vital Signs 07/25/19 18:55 Temperature 98 F Pulse Rate 88 Respiratory 16 Rate Blood Pressure 161/93 O2 Sat by Pulse 97 Oximetry Medical Decision Making - Medical Decision Making 3-year-old female, morbidly obese presents today for lower back pain. She has no reflexes. X-ray was completed O due to obesity, concern for possible pression fractures. There is hypertrophic spur formation. Degenerative changes noted. No compression fractures. Patient for these results. Discussed Patient needs to increase activity, and give the Patient a short course of antibiotics and medication and she'll resume meds. Discussed appropriate follow-up with primary care physician. - Radiology Data Radiology results: report reviewed Hypertrophic changes and degenerative spur formation. No fracture seen. Disposition Clinical Impression: Lower back pain Disposition: HOME SELF-CARE Condition: Good Instructions (If sedation given, give patient instructions): Acute Low Back Pain (ED) Additional Instructions: Please use medication as discussed. Please follow up with family doctor if symptoms have not improved over the next two days. Please return to the emergency room if your symptoms increase or worsen or for any other concerns. Prescriptions: Cyclobenzaprine [Flexeril] 10 mg PO TID #20 tab Ibuprofen 600 mg PO TID #20 tablet Is patient prescribed a controlled substance at d/c from ED?: No Referrals: Garett Byers MD [Primary Care Provider] - 1-2 days Time of Disposition: 20:17
--- NOTE | 2019-07-25 20:03 | XR ---
EXAMINATION TYPE: XR lumbar spine 2 or 3V DATE OF EXAM: 07/25/2019 COMPARISON: NONE HISTORY: Back pain TECHNIQUE: 3 views FINDINGS: Lumbar vertebra have normal alignment. Disc spaces are fairly normal. There is mild anterio r spurring in the mid lumbar spine. Sacroiliac joints are intact. There is no compression fracture. S acroiliac joints appear normal. IMPRESSION: Hypertrophic degenerative spur formation. No fracture seen.
[2019-07-25] MEDS ORDERED: ACET/COD 300 MG/30 MG STARTER PACK 6 TAB BTL PO STA (20:18)
[2019-07-25] MEDS ORDERED: CYCLOBENZAPRINE 10MG STARTER 3 TAB BTL PO STA (20:22)
[2019-07-25 20:27] VITALS: BP 152/70; PULSE 80; RESP 18
== END 2019-07-25 20:28 | disposition home or self-care (01) ==
LOC: EC 18:43
DX: M54.5 Low back pain (principal); E66.01 Morbid (severe) obesity due to excess calories; M47.816 Spondylosis without myelopathy or radiculopathy, lumbar region; E11.9 Type 2 diabetes mellitus without complications; E78.5 Hyperlipidemia, unspecified; I10 Essential (primary) hypertension; M19.90 Unspecified osteoarthritis, unspecified site; E55.9 Vitamin D deficiency, unspecified; E53.8 Deficiency of other specified B group vitamins; G51.0 Bell's palsy; F32.9 Major depressive disorder, single episode, unspecified; F41.0 Panic disorder [episodic paroxysmal anxiety]; Z88.8 Allergy status to other drugs, medicaments and biological substances; Z79.02 Long term (current) use of antithrombotics/antiplatelets; Z79.1 Long term (current) use of non-steroidal anti-inflammatories (NSAID); Z79.82 Long term (current) use of aspirin; Z79.84 Long term (current) use of oral hypoglycemic drugs; Z79.899 Other long term (current) drug therapy; Z86.73 Personal history of transient ischemic attack (TIA), and cerebral infarction without residual deficits; Z68.43 Body mass index [BMI] 50.0-59.9, adult; X50.0XXA Overexertion from strenuous movement or load, initial encounter
CPT/HCPCS: 72100; 99284; 96372 ×2; J2360; J1885

== ENCOUNTER 2020-07-13 10:13 | Emergency (ER) | payer OTHER ==
[2020-07-13 10:24] VITALS: BP 152/92; PULSE 76; RESP 18; TEMP 98.8
[2020-07-13] MEDS: ACET/COD 300 MG/30 MG STARTER PACK 6 TAB BTL PO STA (10:44)
[2020-07-13] MEDS: KETOROLAC 15 MG/ML 1 ML VIAL IM STA (10:44)
--- NOTE | 2020-07-13 10:47 | ED ---
Back Pain HPI - General Source: patient Limitations: no limitations <Isa Wise - Last Filed: 07/13/20 10:53> <Kim Parks - Last Filed: 07/14/20 12:54> - General Chief Complaint: Back Pain/Injury Stated Complaint: lower back pain Time Seen by Provider: 07/13/20 10:25 - History of Present Illness Initial Comments: 34-year-old female presenting today for chief complaint of right-sided low back pain that radiates down the right buttock. Patient states that she sometimes experiences back pain. Patient states that this morning she woke up with Dr. pain does increase from her baseline. Patient denies urinary symptoms she denies hematuria dysuria or urgency frequency fevers. Patient denies any falls or trauma or injuries she denies urinary retention loss of bowel bladder control, loss of sensation or weakness of the lower extremities. Patient denies any history of cancer denies history of fevers or IV drug use patient denies chronic steroid use. Patient states she is a diabetic. Patient has no additional complaints patient states she came for pain management remaining review of system negative upon arrival patient appears nontoxic no acute distress and is ambulatory. (Isa Wise) - Related Data Home Medications Medication Instructions Recorded Confirmed ALPRAZolam [Xanax] 0.5 mg PO TID PRN 05/31/14 10/13/18 Meloxicam [Mobic] 15 mg PO DAILY 05/31/14 10/13/18 sitaGLIPtin PHOS/metFORMIN HCL 1 tab PO AC-BID 05/31/14 10/13/18 [Janumet 50-1,000 mg Tablet] Aspirin EC [Ecotrin Low Dose] 81 mg PO DAILY 02/15/18 10/13/18 Atorvastatin Calcium [Lipitor] 20 mg PO HS 02/15/18 10/13/18 Clopidogrel Bisulfate [Plavix] 75 mg PO DAILY 02/15/18 10/13/18 hydroCHLOROthiazide [Hydrodiuril] 25 mg PO DAILY 02/15/18 10/13/18 lisinopriL [Zestril] 20 mg PO DAILY 02/15/18 10/13/18 Cholecalciferol [Vitamin D3] 1,000 unit PO DAILY 10/13/18 10/13/18 Cyanocobalamin (Vitamin B-12) 1,000 mcg PO DAILY 10/13/18 10/13/18 [Vitamin B-12] Empagliflozin [Jardiance] 25 mg PO DAILY 10/13/18 10/13/18 Escitalopram [Lexapro] 20 mg PO DAILY 10/13/18 10/13/18 Loratadine [Claritin] 10 mg PO DAILY 10/13/18 10/13/18 QUEtiapine [SEROquel] 50 mg PO HS 10/13/18 10/13/18 busPIRone HCl [Buspar] 10 mg PO BID 10/13/18 10/13/18 lamoTRIgine [LaMICtal] 25 mg PO DAILY 10/13/18 10/13/18 Previous Rx's Medication Instructions Recorded Verapamil Sr [Isoptin Sr] 240 mg PO DAILY #30 tablet.er 10/02/14 Cyclobenzaprine [Flexeril] 10 mg PO TID #20 tab 07/25/19 Ibuprofen 600 mg PO TID #20 tablet 07/25/19 Allergies Allergy/AdvReac Type Severity Reaction Status Date / Time amlodipine besylate AdvReac Vertigo/"Funny Verified 07/13/20 10:24 [From [facility]] feeling" Review of Systems ROS Other: All systems not noted in ROS Statement are negative. <Isa Wise - Last Filed: 07/13/20 10:53> ROS Other: All systems not noted in ROS Statement are negative. <Kim Parks - Last Filed: 07/14/20 12:54> ROS Statement: Those systems with pertinent positive or pertinent negative responses have been documented in the HPI. Past Medical History Past Medical History: Asthma, CVA/TIA, Diabetes Mellitus, Hyperlipidemia, Hypertension, Osteoarthritis (OA) Additional Past Medical History / Comment(s): vitamin d and B12 deficiency. 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, bells palsy, back pain History of Any Multi-Drug Resistant Organisms: None Reported Past Surgical History: No Surgical Hx Reported Past Anesthesia/Blood Transfusion Reactions: No Reported Reaction Past Psychological History: Anxiety, Depression, Panic Disorder Smoking Status: Never smoker Past Alcohol Use History: None Reported Past Drug Use History: Marijuana - Past Family History Mother Family Medical History: Diabetes Mellitus <Isa Wise - Last Filed: 07/13/20 10:53> General Exam Limitations: no limitations <Isa Wise - Last Filed: 07/13/20 10:53> - General Exam Comments Initial Comments: General: The patient is awake and alert, in no distress Eye: +3 mm pupils are equal, round and reactive to light, extra-ocular movements are intact. No nystagmus. There is normal conjunctiva bilaterally. No signs of icterus. Cardiovascular: There is a regular rate and rhythm. No murmur, rub or gallop is appreciated. Respiratory: Lungs are clear to auscultation, respirations are non-labored, breath sounds are equal. No wheezes, stridor, rales, or rhonchi. Gastrointestinal: Soft, non-distended, non-tender abdomen without masses or organomegaly noted. There is no rebound or guarding present. Musculoskeletal: Normal back inspection. pain to palpation of the right sided paraspinal muscles and down right buttock. no midline tenderness. (-)SLR b/l. Normal ROM, of the LE/UE b/l. Strength 5/5 of hte LE b/l equal. Sensation intact of the LE b/l equall y including the saddle region. Radial and DP pulses equal bilaterally 2+. +2/5 patellar and achilles DTR. No myoclonus/fasciculations. Neurological: A&O x 3. CN II-XII intact gross, There are no obvious motor or sensory deficits. Coordination appears grossly intact. Speech is normal. Skin: Skin is warm and dry and no rashes or lesions are noted. Psychiatric: Cooperative, appropriate mood & affect, normal judgment. (Isa Wise) Course Vital Signs 07/13/20 10:22 Temperature 98.8 F Pulse Rate 76 Respiratory 18 Rate Blood Pressure 152/92 O2 Sat by Pulse 97 Oximetry Medical Decision Making <Isa Wise - Last Filed: 07/13/20 10:53> <Kim Parks - Last Filed: 07/14/20 12:54> - Medical Decision Making No alarming hx. patient exam WNL aside from tenderness to palpation of the paraspinal muscle. pt afebrile. ambulatory. pt provided pain management. pt agreeable to discharge with pcp f/u and return for worsening symptoms. pt agreeable to care plan and discharge. case discussed with Dr Parks. (Isa Wise) I was available for consultation in the emergency department. The history and physical exam were done by the midlevel provider. I was consulted for this patients care. I reviewed the case with the midlevel provider and based on their presentation of the patient, I agree with the assessment, medical decision making and plan of care as documented. Chart was dictated using [employer] dictation software. Attempts were made to correct any dictation errors however some typographical errors may persist. Patient was seen during a national state of emergency due to the Covid-19 pandemic. (Kim Parks) Disposition Is patient prescribed a controlled substance at d/c from ED?: No Time of Disposition: 10:47 <Isa Wise - Last Filed: 07/13/20 10:53> <Kim Parks - Last Filed: 07/14/20 12:54> Clinical Impression: Low back pain radiating to right lower extremity Disposition: HOME SELF-CARE Condition: Good Instructions (If sedation given, give patient instructions): Acute Low Back Pain (ED) Additional Instructions: Please use medication as discussed. Please follow-up with family doctor in the next 2 days.. Please return to emergency room if the symptoms increase or worsen or for any other concerns. Referrals: Garett Byers MD [Primary Care Provider] - 1-2 days
== END 2020-07-13 10:58 | disposition home or self-care (01) ==
LOC: EC 10:13
DX: M54.5 Low back pain (principal); M79.604 Pain in right leg; F41.9 Anxiety disorder, unspecified; F32.9 Major depressive disorder, single episode, unspecified; F41.0 Panic disorder [episodic paroxysmal anxiety]; E11.9 Type 2 diabetes mellitus without complications; E78.5 Hyperlipidemia, unspecified; I10 Essential (primary) hypertension; M19.90 Unspecified osteoarthritis, unspecified site; Z79.84 Long term (current) use of oral hypoglycemic drugs; Z79.82 Long term (current) use of aspirin; Z79.899 Other long term (current) drug therapy; Z88.8 Allergy status to other drugs, medicaments and biological substances; Z86.73 Personal history of transient ischemic attack (TIA), and cerebral infarction without residual deficits
CPT/HCPCS: 99283; 96372; J1885

== ENCOUNTER 2020-10-06 11:27 | Emergency (ER) | payer OTHER ==
[2020-10-06 11:42] VITALS: TEMP 98.2
--- NOTE | 2020-10-06 11:55 | ED ---
ENT HPI - General Chief complaint: Dental/Oral Stated complaint: Face swelling Time Seen by Provider: 10/06/20 11:48 Source: patient, RN notes reviewed, old records reviewed Mode of arrival: ambulatory Limitations: no limitations - History of Present Illness Initial comments: This is a 35-year-old female DF for evaluation. Patient has significant dental pain. History of dental disease coming in with significant facial swelling left-sided facial swelling difficulty opening mouth. Severe tenderness to left jaw and cheek. Ration denying any fever currently or any significant similar complaint patient does have diabetes MD complaint: tooth pain, other (Left-sided facial edema) -: days(s) Location: tooth # Severity: severe Severity scale (1-10): 9 Quality: aching Consistency: constant Improves with: none Worsens with: none Context-Epistaxis: history of similar Context- Dental: history of dental caries Context- Ear: recent illness Associated Symptoms: fever, toothache - Related Data Home Medications Medication Instructions Recorded Confirmed ALPRAZolam [Xanax] 0.5 mg PO TID PRN 05/31/14 10/13/18 Meloxicam [Mobic] 15 mg PO DAILY 05/31/14 10/13/18 sitaGLIPtin PHOS/metFORMIN HCL 1 tab PO AC-BID 05/31/14 10/13/18 [Janumet 50-1,000 mg Tablet] Aspirin EC [Ecotrin Low Dose] 81 mg PO DAILY 02/15/18 10/13/18 Atorvastatin Calcium [Lipitor] 20 mg PO HS 02/15/18 10/13/18 Clopidogrel Bisulfate [Plavix] 75 mg PO DAILY 02/15/18 10/13/18 hydroCHLOROthiazide [Hydrodiuril] 25 mg PO DAILY 02/15/18 10/13/18 lisinopriL [Zestril] 20 mg PO DAILY 02/15/18 10/13/18 Cholecalciferol [Vitamin D3] 1,000 unit PO DAILY 10/13/18 10/13/18 Cyanocobalamin (Vitamin B-12) 1,000 mcg PO DAILY 10/13/18 10/13/18 [Vitamin B-12] Empagliflozin [Jardiance] 25 mg PO DAILY 10/13/18 10/13/18 Escitalopram [Lexapro] 20 mg PO DAILY 10/13/18 10/13/18 Loratadine [Claritin] 10 mg PO DAILY 10/13/18 10/13/18 QUEtiapine [SEROquel] 50 mg PO HS 10/13/18 10/13/18 busPIRone HCl [Buspar] 10 mg PO BID 10/13/18 10/13/18 lamoTRIgine [LaMICtal] 25 mg PO DAILY 10/13/18 10/13/18 Previous Rx's Medication Instructions Recorded Verapamil Sr [Isoptin Sr] 240 mg PO DAILY #30 tablet.er 10/02/14 Cyclobenzaprine [Flexeril] 10 mg PO TID #20 tab 07/25/19 Ibuprofen 600 mg PO TID #20 tablet 07/25/19 Amoxic-Pot Clav 875-125Mg 1 tab PO Q12HR #20 tablet 10/06/20 [Augmentin 875-125] Allergies Allergy/AdvReac Type Severity Reaction Status Date / Time amlodipine besylate AdvReac Vertigo/"Funny Verified 07/13/20 10:24 [From [facility][1]] feeling" Review of Systems ROS Statement: Those systems with pertinent positive or pertinent negative responses have been documented in the HPI. ROS Other: All systems not noted in ROS Statement are negative. Past Medical History Past Medical History: Asthma, CVA/TIA, Diabetes Mellitus, Hyperlipidemia, Hypertension, Osteoarthritis (OA) Additional Past Medical History / Comment(s): vitamin d and B12 deficiency. 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, bells palsy, back pain History of Any Multi-Drug Resistant Organisms: None Reported Past Surgical History: No Surgical Hx Reported Past Anesthesia/Blood Transfusion Reactions: No Reported Reaction Past Psychological History: Anxiety, Depression, Panic Disorder Smoking Status: Never smoker Past Alcohol Use History: None Reported Past Drug Use History: Marijuana - Past Family History Mother Family Medical History: Diabetes Mellitus General Exam Limitations: no limitations General appearance: alert, in no apparent distress Head exam: Present: atraumatic, normocephalic, normal inspection Eye exam: Present: normal appearance, PERRL, EOMI. Absent: scleral icterus, con junctival injection, periorbital swelling ENT exam: Present: normal exam, mucous membranes moist, other (significant facial edema and tightness) Neck exam: Present: normal inspection. Absent: tenderness, meningismus, lymphadenopathy Respiratory exam: Present: normal lung sounds bilaterally. Absent: respiratory distress, wheezes, rales, rhonchi, stridor Cardiovascular Exam: Present: regular rate, normal rhythm, normal heart sounds. Absent: systolic murmur, diastolic murmur, rubs, gallop, clicks GI/Abdominal exam: Present: soft, normal bowel sounds. Absent: distended, tenderness, guarding, rebound, rigid Extremities exam: Present: normal inspection, full ROM, normal capillary refill. Absent: tenderness, pedal edema, joint swelling, calf tenderness Back exam: Present: normal inspection Neurological exam: Present: alert, oriented X3, CN II-XII intact Psychiatric exam: Present: normal affect, normal mood Skin exam: Present: warm, dry, intact, normal color. Absent: rash Course Vital Signs 10/06/20 10/06/20 10/06/20 11:40 12:53 14:55 Temperature 98.2 F Pulse Rate 84 82 Respiratory 18 18 16 Rate Blood Pressure 140/82 168/83 O2 Sat by Pulse 97 95 Oximetry - Reevaluation(s) Reevaluation #1: 10/06/20 14:29 medical record is reviewed Symptoms significantly improved here in the ER Spoke patient regarding findings and results, questions are answered Patient does see Dr. narvaez will follow-up as an outpatient Medical Decision Making - Medical Decision Making 35 female with facial swelling and pain, dental abscess. Patient will be discharged home on antibiotics symptoms much improved currently - Lab Data Result diagrams: 10/06/20 12:49 10/06/20 12:49 Lab Results 10/06/20 10/06/20 10/06/20 Range/Units 12:49 12:49 12:49 WBC 6.4 (3.8-10.6) k/uL RBC 4.88 (3.80-5.40) m/uL Hgb 14.7 (11.4-16.0) gm/dL Hct 44.9 (34.0-46.0) % MCV 91.9 (80.0-100.0) fL MCH 30.0 (25.0-35.0) pg MCHC 32.7 (31.0-37.0) g/dL RDW 14.5 (11.5-15.5) % Plt Count 157 (150-450) k/uL MPV 8.1 Neutrophils % 67 % Lymphocytes % 23 % Monocytes % 4 % Eosinophils % 4 % Basophils % 1 % Neutrophils # 4.2 (1.3-7.7) k/uL Lymphocytes # 1.5 (1.0-4.8) k/uL Monocytes # 0.3 (0-1.0) k/uL Eosinophils # 0.3 (0-0.7) k/uL Basophils # 0.0 (0-0.2) k/uL PT 9.6 (9.0-12.0) sec INR 0.9 (<1.2) APTT 21.9 L (22.0-30.0) sec Sodium 137 (137-145) mmol/L Potassium 3.4 L (3.5-5.1) mmol/L Chloride 100 (98-107) mmol/L Carbon Dioxide 31 H (22-30) mmol/L Anion Gap 6 mmol/L BUN 6 L (7-17) mg/dL Creatinine 0.46 L (0.52-1.04) mg/dL Est GFR (CKD-EPI)AfAm >90 (>60 ml/min/1.73 sqM) Est GFR (CKD-EPI)NonAf >90 (>60 ml/min/1.73 sqM) Glucose 337 H (74-99) mg/dL Plasma Lactic Acid Jeffrey (0.7-2.0) mmol/L Calcium 8.8 (8.4-10.2) mg/dL Phosphorus 3.8 (2.5-4.5) mg/dL Magnesium 1.4 L (1.6-2.3) mg/dL Total Bilirubin 0.4 (0.2-1.3) mg/dL AST 16 (14-36) U/L ALT 16 (4-34) U/L Alkaline Phosphatase 139 H (38-126) U/L Creatine Kinase 47 (30-135) U/L Troponin I (0.000-0.034) ng/mL C-Reactive Protein 29.9 H (<10.0) mg/L NT-Pro-B Natriuret Pep pg/mL Total Protein 5.9 L (6.3-8.2) g/dL Albumin 3.2 L (3.5-5.0) g/dL 10/06/20 10/06/20 10/06/20 Range/Units 12:49 12:49 12:49 WBC (3.8-10.6) k/uL RBC (3.80-5.40) m/uL Hgb (11.4-16.0) gm/dL Hct (34.0-46.0) % MCV (80.0-100.0) fL MCH (25.0-35.0) pg MCHC (31.0-37.0) g/dL RDW (11.5-15.5) % Plt Count (150-450) k/uL MPV Neutrophils % % Lymphocytes % % Monocytes % % Eosinophils % % Basophils % % Neutrophils # (1.3-7.7) k/uL Lymphocytes # (1.0-4.8) k/uL Monocytes # (0-1.0) k/uL Eosinophils # (0-0.7) k/uL Basophils # (0-0.2) k/uL PT (9.0-12.0) sec INR (<1.2) APTT (22.0-30.0) sec Sodium (137-145) mmol/L Potassium (3.5-5.1) mmol/L Chloride (98-107) mmol/L Carbon Dioxide (22-30) mmol/L Anion Gap mmol/L BUN (7-17) mg/dL Creatinine (0.52-1.04) mg/dL Est GFR (CKD-EPI)AfAm (>60 ml/min/1.73 sqM) Est GFR (CKD-EPI)NonAf (>60 ml/min/1.73 sqM) Glucose (74-99) mg/dL Plasma Lactic Acid Jeffrey 1.8 (0.7-2.0) mmol/L Calcium (8.4-10.2) mg/dL Phosphorus (2.5-4.5) mg/dL Magnesium (1.6-2.3) mg/dL Total Bilirubin (0.2-1.3) mg/dL AST (14-36) U/L ALT (4-34) U/L Alkaline Phosphatase (38-126) U/L Creatine Kinase (30-135) U/L Troponin I <0.012 (0.000-0.034) ng/mL C-Reactive Protein (<10.0) mg/L NT-Pro-B Natriuret Pep 37 pg/mL Total Protein (6.3-8.2) g/dL Albumin (3.5-5.0) g/dL - EKG Data -: EKG Interpreted by Me (EKG shows sinus rhythm 77. 132 QRS 94 QTC 457) - Radiology Data Radiology results: report reviewed (CT shows left-sided facial swelling no abscess), image reviewed Disposition Clinical Impression: Diabetes, Toothache, Dental abscess Disposition: HOME SELF-CARE Condition: Good Instructions (If sedation given, give patient instructions): Dental Abscess (ED) Prescriptions: Amoxic-Pot Clav 875-125Mg [Augmentin 875-125] 1 tab PO Q12HR #20 tablet Is patient prescribed a controlled substance at d/c from ED?: No Referrals: Garett Byers MD [Primary Care Provider] - 1-2 days
[2020-10-06] MEDS ORDERED: DEXAMETHASONE SOD PHOSPHATE 10 MG/ML 1 ML VIAL IV STA (12:09)
[2020-10-06] MEDS ORDERED: SODIUM CHLORIDE 0.9% 1,000 ML IV STA ×2 (12:09)
[2020-10-06] MEDS ORDERED: MORPHINE SULFATE 4 MG/ML SYRINGE IV STA (12:09)
[2020-10-06] MEDS ORDERED: AMPICILLIN-SULBACTAM 3 GM in SODIUM CHLORIDE 0.9% 100 ML IVPB STA (12:09)
[2020-10-06] MEDS ORDERED: KETOROLAC 15 MG/ML 1 ML VIAL IVP STA (12:09)
[2020-10-06 13:00] LABS: Basophils % (A) 1 %; Eosinophils # (A) 0.3 k/uL (0-0.7); Eosinophils % (A) 4 %; HCT 44.9 % (34.0-46.0); HGB 14.7 gm/dL (11.4-16.0); Lymphocytes # (A) 1.5 k/uL (1.0-4.8); Lymphocytes % (A) 23 %; MCHC 32.7 g/dL (31.0-37.0); MCV 91.9 fL (80.0-100.0); Mean Platelet Volume 8.1; Monocytes # (A) 0.3 k/uL (0-1.0); Monocytes % (A) 4 %; Neutrophils # (A) 4.2 k/uL (1.3-7.7); Neutrophils % (A) 67 %; Platelet Count 157 k/uL (150-450); RBC 4.88 m/uL (3.80-5.40); RDW 14.5 % (11.5-15.5); WBC 6.4 k/uL (3.8-10.6)
[2020-10-06 13:12] LABS: ALT 16 U/L (4-34); AST 16 U/L (14-36); African American GFR (CKD) >90 (>60 ml/min/1.73 sqM); Albumin 3.2 g/dL (3.5-5.0); Alkaline Phosphatase 139 U/L (38-126); Anion Gap 6 mmol/L; Blood Urea Nitrogen 6 mg/dL (7-17); C Reactive Protein 29.9 mg/L (<10.0); Calcium 8.8 mg/dL (8.4-10.2); Carbon Dioxide 31 mmol/L (22-30); Chloride 100 mmol/L (98-107); Creatine Kinase 47 U/L (30-135); Glucose 337 mg/dL (74-99); Magnesium 1.4 mg/dL (1.6-2.3); Non-African American GFR(CKD) >90 (>60 ml/min/1.73 sqM); Phosphorus 3.8 mg/dL (2.5-4.5); Potassium 3.4 mmol/L (3.5-5.1); Sodium 137 mmol/L (137-145); Total Bilirubin 0.4 mg/dL (0.2-1.3); Total Protein 5.9 g/dL (6.3-8.2)
[2020-10-06 13:32] LABS: INR 0.9 (<1.2); Partial Thromboplastin Time 21.9 sec (22.0-30.0); Prothrombin Time 9.6 sec (9.0-12.0)
[2020-10-06 14:56] VITALS: BP 168/83; PULSE 82; RESP 16
--- NOTE | 2020-10-06 15:28 | CT ---
CT NECK HISTORY: Left-sided neck swelling. COMPARISON: 10/13/2018. TECHNIQUE: Multiple axial CT images of the neck were obtained following the administration of 100 mL Isovue 300 intravenous contrast. Coronal and sagittal reformats were generated and reviewed. Automate d dose control was used for this exam. FINDINGS: There is mild soft tissue fat stranding inferior to the left mandible. No soft tissue gas or fluid co llections seen. There are scattered multiple mildly enlarged cervical lymph nodes. There are fatty ch anges of the submandibular glands with acute abnormality seen. There is symmetric enlargement of the bilateral parotid glands. Otherwise the parapharyngeal, retropharyngeal and prevertebral spaces appear grossly preserved. The visualized airway and upper lungs grossly unremarkable. No acute osseous abnormality. Tongue ring is noted. IMPRESSION: Mild soft tissue inflammatory changes about the left mandible without soft tissue gas or fluid collec tion seen. No acute osseous abnormality. Stable symmetric enlargement of the bilateral parotid glands.
== END 2020-10-06 15:35 ==
LOC: EC 11:27
DX: K04.7 Periapical abscess without sinus (principal); E11.9 Type 2 diabetes mellitus without complications; J45.909 Unspecified asthma, uncomplicated; E78.5 Hyperlipidemia, unspecified; M19.90 Unspecified osteoarthritis, unspecified site; I10 Essential (primary) hypertension; Z86.73 Personal history of transient ischemic attack (TIA), and cerebral infarction without residual deficits; F41.9 Anxiety disorder, unspecified; F32.9 Major depressive disorder, single episode, unspecified; F12.90 Cannabis use, unspecified, uncomplicated
CPT/HCPCS: 99284; 96365; 96375; 96361; 36415; 93005; 83880; 80053; 82550; 83605; 83735; 84100; 84484; 85025; 85610; 85730; 86140; 70491; J2270; J1100; J0295; J1885; Q9967

== ENCOUNTER → 2021-01-17 | Outpatient (CLI) | payer OTHER ==
[2021-01-17 13:42] VITALS: BP 171/105; PULSE 86; RESP 18; TEMP 98; BMI 60.0
[2021-01-17 14:43] LABS: HCT 45.3 % (34.0-46.0); HGB 15.1 gm/dL (11.4-16.0); MCH 30.2 pg (25.0-35.0); MCHC 33.3 g/dL (31.0-37.0); MCV 90.7 fL (80.0-100.0); Mean Platelet Volume 7.9; Platelet Count 213 k/uL (150-450); RBC 4.99 m/uL (3.80-5.40); RDW 13.7 % (11.5-15.5); WBC 5.5 k/uL (3.8-10.6)
--- NOTE | 2021-01-17 15:05 | P.HPBAR ---
Bariatric H&P - History & Physicial H&P Date: 01/17/21 History & Physicial: Visit/CC: initial visit Patient initial contact: Initial weight: 168.736 kg Initial weight in pounds: 372.00 Height: 5 ft 8.5 in Initial BMI: 55.7 Last weight: Current weight: 181.845 kg Current weight in pounds: 400.90 Current BMI: 60.0 [place] body weight (based on NIH guidelines): 64.637 kg Excess body weight loss: The patient is a 35 year-old F who presents for Bariatric Assessment. 35-year-old female comes to the office for evaluation of weight loss surgery. Patient states she is interested in sleeve gastrectomy but admits that she has not really thought about the surgeries and wants us to decide for her. Patient with multiple comorbidities. History of CVA in 2015. Says she does not know why she had a stroke at that young age. She says she had CAT scan brain showing a mass that did not require further treatment. States she had a hole in her heart as well. States that was never treated. Patient with medical history including diabetes, hypertension, sleep apnea, hyperlipidemia, bipolar disorder and noncompliance. Denies history of DVT or dysphagia. BMI 60.0. She was thinking about weight loss surgery 6 years ago. At that time she had an EGD which showed no hiatal hernia. She is not sure which surgery she was going to have at that time. Review of Systems The patient denies any acute changes in vision or hearing, no dysphagia or odynophagia, no chest pain or shortness of breath, no dysuria or hematuria, no headache, no runny nose, no rectal bleeding or melena, no unexplained weight loss Past Medical History Past Medical History: Asthma, CVA/TIA, Diabetes Mellitus, Hyperlipidemia, Hypertension, Osteoarthritis (OA) Additional Past Medical History / Comment(s): vitamin d and B12 deficiency. 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, bells palsy, back pain History of Any Multi-Drug Resistant Organisms: None Reported Past Surgical History: No Surgical Hx Reported Additional Past Surgical History / Comment(s): wisdom teeth Past Anesthesia/Blood Transfusion Reactions: No Reported Reaction Past Psychological History: Anxiety, Depression, Panic Disorder Smoking Status: Never smoker, Second hand smoke exposure Past Alcohol Use History: None Reported Past Drug Use History: Marijuana Additional Drug Use History / Comment(s): utilizes marijuana in various forms every other day. - Past Family History Mother Family Medical History: Diabetes Mellitus Surgical - Exam Vital Signs Temp Pulse Resp BP 98.0 F 86 18 171/105 01/17/21 13:30 01/17/21 13:30 01/17/21 13:30 01/17/21 13:30 Physical exam: General: Well-developed, well-nourished HEENT: Normocephalic, sclerae nonicteric Abdomen: Nontender, nondistended Extremities: No edema Neuro: Alert and oriented Results - Labs 01/17/21 14:24 Bariatric Assessment & Plan (1) Morbid obesity with body mass index of 50 or higher Narrative/Plan: 35-year-old female with morbid obesity interested in weight loss surgery. The patient is a poor historian and clearly has multiple comorbidities. The patient does not verbalize understanding of the surgical procedures thus far despite going to a seminar that I provided. Patient's BMI is 60 and consideration for gastric bypass discussed. Recent notes from her primary care physician demonstrate elevated hemoglobin A1c 11.4 and history of noncompliance. Discussed with patient that she will require improvement in her hemoglobin A1c and demonstrate compliance to us prior to proceeding with surgical intervention. Discussed options of both sleeve gastrectomy and gastric bypass along with their associated risks and benefits. We'll obtain medical clearance, cardiac clearance. We'll obtain letter from her psychologist as well. Status: Acute Bariatric Checklist Checklist: Plan: Checklist: EGD: 1. Hiatal hernia: 2. H. Pylori: HgbA1c: Vitamin D: Smoking: Never smoker Primary care physician referral: Zeeshan Psychiatry clearance: Cardiology clearance: Sleep study: Diet journal: VTE risk score: VTE risk level: Rehab needs at discharge:
[2021-01-18 02:47] LABS: Folate, Serum 6.3 ng/mL
[2021-01-18 03:50] LABS: African American GFR (CKD) 110.7 (60.0-200.0); Albumin 3.8 g/dL (3.80-4.90); Albumin/Globulin Ratio 1.41 (1.60-3.17); Anion Gap 10.4 mmol/L (4.00-12.00); BUN/Creat Ratio 7.5 Ratio (12.00-20.00); Calcium 8.7 mg/dL (8.7-10.3); Carbon Dioxide 30.6 mmol/L (21.6-31.8); Globulin 2.7 g/dL (1.6-3.3); Non-African American GFR(CKD) 95.5 (60.0-200.0); Potassium 4.2 mmol/L (3.5-5.5); Total Bilirubin 0.3 mg/dL (0.3-1.2); Total Protein 6.5 g/dL (6.2-8.2)
== END ==
LOC: BARWHC3 13:23
PROVIDERS: ATTEND Surgery
DX: E66.01 Morbid (severe) obesity due to excess calories (principal); J45.909 Unspecified asthma, uncomplicated; E11.9 Type 2 diabetes mellitus without complications; E78.5 Hyperlipidemia, unspecified; I10 Essential (primary) hypertension; M19.90 Unspecified osteoarthritis, unspecified site; F32.9 Major depressive disorder, single episode, unspecified; F41.0 Panic disorder [episodic paroxysmal anxiety]; Z68.43 Body mass index [BMI] 50.0-59.9, adult; Z86.73 Personal history of transient ischemic attack (TIA), and cerebral infarction without residual deficits; Z88.8 Allergy status to other drugs, medicaments and biological substances; Z79.82 Long term (current) use of aspirin; Z79.84 Long term (current) use of oral hypoglycemic drugs; Z79.899 Other long term (current) drug therapy; Z79.1 Long term (current) use of non-steroidal anti-inflammatories (NSAID)
CPT/HCPCS: 84425; 80053; 82607; 82746; 83540; 85027; 82306; 83036; 36415; G0463; 99203

== ENCOUNTER 2021-09-19 09:21 | Emergency (ER) | payer OTHER ==
[2021-09-19 09:28] VITALS: BP 144/93; PULSE 93; RESP 18; TEMP 97
[2021-09-19] MEDS ORDERED: ACET/COD 300 MG/30 MG STARTER PACK 6 TAB BTL PO STA (09:59)
--- NOTE | 2021-09-19 10:03 | ED ---
Back Pain HPI - General Chief Complaint: Back Pain/Injury Stated Complaint: Back Pain Time Seen by Provider: 09/19/21 09:34 Source: patient, RN notes reviewed Limitations: no limitations - Related Data Home Medications Medication Instructions Recorded Confirmed Meloxicam [Mobic] 15 mg PO DAILY 05/31/14 01/17/21 sitaGLIPtin PHOS/metFORMIN HCL 1 tab PO AC-BID 05/31/14 01/17/21 [Janumet 50-1,000 mg Tablet] Aspirin EC [Ecotrin Low Dose] 81 mg PO DAILY 02/15/18 01/17/21 Atorvastatin Calcium [Lipitor] 20 mg PO HS 02/15/18 01/17/21 Clopidogrel Bisulfate [Plavix] 75 mg PO DAILY 02/15/18 01/17/21 hydroCHLOROthiazide [Hydrodiuril] 25 mg PO DAILY 02/15/18 01/17/21 lisinopriL [Zestril] 20 mg PO DAILY 02/15/18 01/17/21 Cholecalciferol [Vitamin D3] 1,000 unit PO DAILY 10/13/18 01/17/21 Cyanocobalamin (Vitamin B-12) 1,000 mcg PO DAILY 10/13/18 01/17/21 [Vitamin B-12] Empagliflozin [Jardiance] 25 mg PO DAILY 10/13/18 01/17/21 Escitalopram [Lexapro] 20 mg PO DAILY 10/13/18 01/17/21 Loratadine [Claritin] 10 mg PO DAILY 10/13/18 01/17/21 QUEtiapine [SEROquel] 50 mg PO HS 10/13/18 01/17/21 busPIRone HCl [Buspar] 10 mg PO BID 10/13/18 01/17/21 lamoTRIgine [LaMICtal] 25 mg PO DAILY 10/13/18 01/17/21 Previous Rx's Medication Instructions Recorded Verapamil Sr [Isoptin Sr] 240 mg PO DAILY #30 tablet.er 10/02/14 Cyclobenzaprine [Flexeril] 10 mg PO TID #20 tab 07/25/19 Ibuprofen 600 mg PO TID #20 tablet 07/25/19 Cyclobenzaprine [Flexeril] 10 mg PO TID PRN #15 tab 09/19/21 Allergies Allergy/AdvReac Type Severity Reaction Status Date / Time amlodipine besylate AdvReac Vertigo/"Funny Verified 09/19/21 09:24 [From [facility]] feeling" Review of Systems ROS Statement: Those systems with pertinent positive or pertinent negative responses have been documented in the HPI. ROS Other: All systems not noted in ROS Statement are negative. Past Medical History Past Medical History: Asthma, CVA/TIA, Diabetes Mellitus, Hyperlipidemia, Hypertension, Osteoarthritis (OA) Additional Past Medical History / Comment(s): vitamin d and B12 deficiency. 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, bells palsy, back pain History of Any Multi-Drug Resistant Organisms: None Reported Past Surgical History: No Surgical Hx Reported Additional Past Surgical History / Comment(s): wisdom teeth Past Anesthesia/Blood Transfusion Reactions: No Reported Reaction Past Psychological History: Anxiety, Depression, Panic Disorder Smoking Status: Never smoker Past Alcohol Use History: None Reported Past Drug Use History: Marijuana - Past Family History Mother Family Medical History: Diabetes Mellitus General Exam Limitations: no limitations Course Vital Signs 09/19/21 09:24 Temperature 97 F L Pulse Rate 93 Respiratory 18 Rate Blood Pressure 144/93 O2 Sat by Pulse 98 Oximetry Medical Decision Making - Medical Decision Making 35-year-old female presents emergency Department with chief complaint of low back pain. Patient states she had injury 7 years ago states that she has on-and-off issues. She states occasionally she has exacerbation in which she needs something for the pain. Patient denies any bowel, bladder incontinence or retentionanesthesias. Patient denies any pain areas are legs she states is only localized to her low back she has no abdominal pain no dysuria no hematuria patient offers no complaints. Disposition Clinical Impression: Strain of lumbar region Disposition: HOME SELF-CARE Condition: Stable Instructions (If sedation given, give patient instructions): Acute Low Back Pain (ED) Additional Instructions: Please return to the Emergency Department if symptoms worsen or any other concerns. Prescriptions: Cyclobenzaprine [Flexeril] 10 mg PO TID PRN #15 tab PRN Reason: Muscle Spasm Is patient prescribed a controlled substance at d/c from ED?: No Referrals: Garett Byers MD [Primary Care Provider] - 1-2 days Time of Disposition: 10:03
== END 2021-09-19 10:17 | disposition home or self-care (01) ==
LOC: EC 09:21
DX: S39.012A Strain of muscle, fascia and tendon of lower back, initial encounter (principal); J45.909 Unspecified asthma, uncomplicated; E11.9 Type 2 diabetes mellitus without complications; E78.5 Hyperlipidemia, unspecified; I10 Essential (primary) hypertension; M19.90 Unspecified osteoarthritis, unspecified site; F41.9 Anxiety disorder, unspecified; F32.A Depression, unspecified; F12.90 Cannabis use, unspecified, uncomplicated; Z79.82 Long term (current) use of aspirin; Z79.02 Long term (current) use of antithrombotics/antiplatelets; Z79.84 Long term (current) use of oral hypoglycemic drugs; Z86.73 Personal history of transient ischemic attack (TIA), and cerebral infarction without residual deficits; X58.XXXA Exposure to other specified factors, initial encounter
CPT/HCPCS: 99283

== ENCOUNTER 2024-04-27 08:16 | Emergency (ER) | payer OTHER ==
[2024-04-27 08:20] VITALS: RESP 18
[2024-04-27] MEDS: MORPHINE SULFATE 4 MG/ML SYRINGE IM STA (09:10)
[2024-04-27] MEDS: LIDOCAINE 4% PATCH TOPICAL STA (09:11)
[2024-04-27] MEDS: methylPREDNISolone SOD SUCCI 125 MG/2 ML VIAL IM ONE (09:11)
--- NOTE | 2024-04-27 09:54 | XR ---
EXAMINATION TYPE: XR lumbar spine 2 or 3V DATE OF EXAM: 04/27/2024 9:31 AM CLINICAL INDICATION: Female, 38 years old with history of pain; COMPARISON: 2019 TECHNIQUE: XR lumbar spine 2 or 3V - Frontal, lateral and coned in L5-S1 lateral views of the spine. FINDINGS: No evidence of any acute osseous pathology. No evidence of loss of vertebral body height i s seen. There is normal alignment of the lumbar vertebral bodies. Scattered disc space narrowing. Mul tilevel marginal osteophyte formation throughout the visualized spine. There is facet joint arthropat hy throughout the spine. Scattered at least mild neural foraminal stenosis. IMPRESSION: 1. No acute fracture. 2. Moderate multilevel disc degeneration. [facility], , 04/27/2024 9:52 AM
--- NOTE | 2024-04-27 10:49 | ED ---
General Adult HPI - General Chief complaint: Back Pain/Injury Stated complaint: Back pain Time Seen by Provider: 04/27/24 08:58 Source: patient, RN notes reviewed, old records reviewed Mode of arrival: ambulatory Limitations: no limitations - History of Present Illness Initial comments: Patient is a 38-year-old female presents emergency department complaining of acute on chronic back pain. States it started earlier this week. No trauma. Has a history of chronic lower back pain. Denies saddle paresthesias. Denies lower extremity paralysis. Denies urinary or bowel incontinence or retention. Has no other injuries. Presents for further evaluation at this time. Pain is worse with movement and twisting of the torso. Still ambulates without difficulty. - Related Data Home Medications Medication Instructions Recorded Confirmed Meloxicam [Mobic] 15 mg PO DAILY 05/31/14 01/17/21 sitaGLIPtin PHOS/metFORMIN HCL 1 tab PO AC-BID 05/31/14 01/17/21 [Janumet 50-1,000 mg Tablet] Aspirin EC [Ecotrin Low Dose] 81 mg PO DAILY 02/15/18 01/17/21 Atorvastatin Calcium [Lipitor] 20 mg PO HS 02/15/18 01/17/21 Clopidogrel Bisulfate [Plavix] 75 mg PO DAILY 02/15/18 01/17/21 hydroCHLOROthiazide [Hydrodiuril] 25 mg PO DAILY 02/15/18 01/17/21 lisinopriL [Zestril] 20 mg PO DAILY 02/15/18 01/17/21 Cholecalciferol [Vitamin D3] 1,000 unit PO DAILY 10/13/18 01/17/21 Cyanocobalamin (Vitamin B-12) 1,000 mcg PO DAILY 10/13/18 01/17/21 [Vitamin B-12] Empagliflozin [Jardiance] 25 mg PO DAILY 10/13/18 01/17/21 Escitalopram [Lexapro] 20 mg PO DAILY 10/13/18 01/17/21 Loratadine [Claritin] 10 mg PO DAILY 10/13/18 01/17/21 QUEtiapine [SEROquel] 50 mg PO HS 10/13/18 01/17/21 busPIRone HCl [Buspar] 10 mg PO BID 10/13/18 01/17/21 lamoTRIgine [LaMICtal] 25 mg PO DAILY 10/13/18 01/17/21 Previous Rx's Medication Instructions Recorded Verapamil Sr [Isoptin Sr] 240 mg PO DAILY #30 tablet.er 10/02/14 Cyclobenzaprine [Flexeril] 10 mg PO TID #20 tab 07/25/19 Ibuprofen 600 mg PO TID #20 tablet 07/25/19 Cyclobenzaprine [Flexeril] 10 mg PO TID PRN #15 tab 09/19/21 Allergies Allergy/AdvReac Type Severity Reaction Status Date / Time amlodipine besylate AdvReac Vertigo/"Funny Verified 04/27/24 08:20 [From [facility][1]] feeling" Review of Systems ROS Statement: Those systems with pertinent positive or pertinent negative responses have been documented in the HPI. Review of Systems: CONST: Denies fever EYES: Denies blurry vision ENT: Denies nasal congestion C/V: Denies Chest pain RESP: Denies shortness of breath GI: Denies abdominal pain : Denies dysuria SKIN: Denies rash. MSK: Endorses back pain NEURO: Denies headache ROS Other: All systems not noted in ROS Statement are negative. Past Medical History Past Medical History: Asthma, CVA/TIA, Diabetes Mellitus, Hyperlipidemia, Hypertension, Osteoarthritis (OA) Additional Past Medical History / Comment(s): vitamin d and B12 deficiency. 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, bells palsy, back pain History of Any Multi-Drug Resistant Organisms: None Reported Past Surgical History: No Surgical Hx Reported Additional Past Surgical History / Comment(s): wisdom teeth Past Anesthesia/Blood Transfusion Reactions: No Reported Reaction Past Psychological History: Anxiety, Depression, Panic Disorder Smoking Status: Never smoker Past Alcohol Use History: None Reported Past Drug Use History: Marijuana - Past Family History Mother Family Medical History: Diabetes Mellitus General Exam - General Exam Comments Initial Comments: General: Appears in mild distress secondary to back pain. HEAD: Normal with no signs of head trauma. EYES: EOMI. ENT: Hearing grossly intact. RESPIRATORY: No respiratory distress. C/V: Regular rate and rhythm. ABD: Abdomen is nondistended. EXT: No obvious deformity. No step-offs or deformity of the spine present. Inferior lumbar spine tenderness to palpation in the midline. No significant paraspinal muscle tenderness to palpation. SKIN: No rashes or lesions observed on exposed skin. NEURO: Alert and oriented. No focal neurological deficits. Limitations: no limitations Course Vital Signs 04/27/24 04/27/24 08:18 10:59 Temperature 97.9 F 97.8 F Pulse Rate 117 H 94 Respiratory 18 18 Rate Blood Pressure 129/82 131/86 O2 Sat by Pulse 98 98 Oximetry Medical Decision Making - Medical Decision Making Was pt. sent in by a medical professional or institution (, [facility], SURGERY TECH, urgent care, hospital, or [facility]...) When possible be specific @ -No Did you speak to anyone other than the patient for history (EMS, parent, family, police, friend...)? What history was obtained from this source @ -No Did you review nursing and triage notes (agree or disagree)? Why? @ -I reviewed and agree with nursing and triage notes Were old charts reviewed (outside hosp., previous admission, EMS record, old EKG, old radiological studies, urgent care reports/EKG's, [facility] records)? Report findings @ -No old charts were reviewed Differential Diagnosis (chest pain, altered mental status, abdominal pain women, abdominal pain men, vaginal bleeding, weakness, fever, dyspnea, syncope, headache, dizziness, GI bleed, back pain, seizure, CVA, palpatations, mental health, musculoskeletal)? @ -Differential Back Pain: Strain, zoster, cauda equina syndrome, epidural abscess, vertebral osteomyelitis, discitis, fracture, subluxation, disc herniation, DJD, spinal stenosis, dissection, AAA, pancreatitis, peptic ulcer disease, pyelonephritis, kidney stone, this is not meant to be an all-inclusive list. EKG interpreted by me (3pts min.). @ -None done X-rays interpreted by me (1pt min.). @ -X-ray reveals chronic degenerative changes with no acute process. CT interpreted by me (1pt min.). @ -None done U/S interpreted by me (1pt. min.). @ -None done What testing was considered but not performed or refused? (CT, X-rays, U/S, labs)? Why? @ -None What meds were considered but not given or refused? Why? @ -None Did you discuss the management of the patient with other professionals (professionals i.e. , [facility], SURGERY TECH, lab, RT, psych nurse, director social service, linux programmer, teacher, motorized squad commanding officer, case fitter)? Give summary @ -No Was smoking cessation discussed for >3mins.? @ -No Was critical care preformed (if so, how long)? @ -No Were there social determinants of health that impacted care today? How? (Homelessness, low income, unemployed, alcoholism, drug addiction, tr ansportation, low edu. Level, literacy, decrease access to med. care, skilled nursing, rehab)? @ -No Was there de-escalation of care discussed even if they declined (Discuss DNR or withdrawal of care, Hospice)? DNR status @ -No What co-morbidities impacted this encounter? (DM, HTN, Smoking, COPD, CAD, Cancer, CVA, ARF, Chemo, Hep., AIDS, mental health diagnosis, sleep apnea, morbid obesity)? @ -None Was patient admitted / discharged? Hospital course, mention meds given and route, prescriptions, significant lab abnormalities, going to OR and other pertinent info. @ -Based on the patient's presentation and physical exam, patient presents emergency department complaining of acute on chronic back pain. Is atraumatic. We will obtain x-ray. Patient was symptomatically treated with morphine, Solu-Medrol, lidocaine patch. Patient in agreement this plan. Imaging unremarkable. I believe is safe for the patient be discharged home at this time. No red flag symptoms to suggest cauda equina syndrome at this time. Patient was in agreement this plan. I instructed the patient to follow up with their PCP in the next 1-3 days. I explained that the patient should return to the emergency department if they experience any worsening symptoms. Strict return precautions were discussed with the patient. The patient expressed understanding of these instructions. I answered all questions that the patient had. The patient was discharged home in good condition with their prescriptions and follow up information. Undiagnosed new problem with uncertain prognosis? @ -No Drug Therapy requiring intensive monitoring for toxicity (Heparin, Nitro, Insulin, Cardizem)? @ -No Were any procedures done? @ -No Diagnosis/symptom? @ -Low back strain Acute, or Chronic, or Acute on Chronic? @ -Acute Uncomplicated (without systemic symptoms) or Complicated (systemic symptoms)? @ -Uncomplicated Side effects of treatment? @ -No Exacerbation, Progression, or Severe Exacerbation? @ -No Poses a threat to life or bodily function? How? (Chest pain, [place], [place], pneumonia, PE, COPD, DKA, ARF, appy, cholecystitis, CVA, Diverticulitis, Homicidal, Suicidal, threat to staff... and all critical care pts) @ -No Disposition Clinical Impression: Low back strain Disposition: HOME SELF-CARE Condition: Good Instructions (If sedation given, give patient instructions): Acute Low Back Pain (ED) Is patient prescribed a controlled substance at d/c from ED?: No Referrals: Mango Garcia [Primary Care Provider] - 1-2 days Time of Disposition: 10:45
[2024-04-27] MEDS: ACET/COD 300 MG/30 MG STARTER PACK 6 TAB BTL PO STA (10:57)
[2024-04-27 11:00] VITALS: BP 131/86; PULSE 94; TEMP 97.8
== END 2024-04-27 11:01 | disposition home or self-care (01) ==
LOC: EC 08:16
CPT/HCPCS: 72100; 96372; 99283

== ENCOUNTER 2024-10-05 14:33 | Emergency (ER) | payer OTHER ==
[2024-10-05 15:04] VITALS: TEMP 97.6
--- NOTE | 2024-10-05 15:14 | ED ---
Nausea/Vomiting/Diarrhea HPI - General Source: patient, RN notes reviewed Mode of arrival: ambulatory Limitations: no limitations - History of Present Illness MD complaint: nausea, vomiting, diarrhea, abdominal pain <Natalie Ruiz - Last Filed: 10/05/24 15:13> - General Source: patient, RN notes reviewed, old records reviewed <Jw De León - Last Filed: 10/06/24 00:10> - General Chief complaint: Nausea/Vomiting/Diarrhea Stated complaint: vomiting Time Seen by Provider: 10/05/24 15:00 - History of Present Illness Initial comments: Quick Note: This is a 39-year-old female who presents to the emergency department for nausea and vomiting. States that it started last night. She has generalized abdominal pain and diarrhea as well. Denies any fevers/chills or sick contacts. Patient also requesting we fax a doctor's note to the court as she was supposed to attend jury duty. (Natalie Ruiz) Patient is a 39-year-old female who presents emergency department complaining of nausea, vomiting, diarrhea. Has a history of diabetes, hypertension, hyperlipidemia. Who is currently on jury duty. She states she feels improved and just wants a jury duty note. Has no other acute complaints. Has a history of diabetes, asthma. History of hypertension and hyperlipidemia. Prior TIA as well. Presents for further evaluation at this time. Denies any significant abdominal pain. States she feels fine. (Jw De León) - Related Data Home Medications Medication Instructions Recorded Confirmed Meloxicam [Mobic] 15 mg PO DAILY 05/31/14 01/17/21 sitaGLIPtin PHOS/metFORMIN HCL 1 tab PO AC-BID 05/31/14 01/17/21 [Janumet 50-1,000 mg Tablet] Aspirin EC [Ecotrin Low Dose] 81 mg PO DAILY 02/15/18 01/17/21 Atorvastatin Calcium [Lipitor] 20 mg PO HS 02/15/18 01/17/21 Clopidogrel Bisulfate [Plavix] 75 mg PO DAILY 02/15/18 01/17/21 hydroCHLOROthiazide [Hydrodiuril] 25 mg PO DAILY 02/15/18 01/17/21 lisinopriL [Zestril] 20 mg PO DAILY 02/15/18 01/17/21 Cholecalciferol [Vitamin D3] 1,000 unit PO DAILY 10/13/18 01/17/21 Cyanocobalamin (Vitamin B-12) 1,000 mcg PO DAILY 10/13/18 01/17/21 [Vitamin B-12] Empagliflozin [Jardiance] 25 mg PO DAILY 10/13/18 01/17/21 Escitalopram [Lexapro] 20 mg PO DAILY 10/13/18 01/17/21 Loratadine [Claritin] 10 mg PO DAILY 10/13/18 01/17/21 QUEtiapine [SEROquel] 50 mg PO HS 10/13/18 01/17/21 busPIRone HCl [Buspar] 10 mg PO BID 10/13/18 01/17/21 lamoTRIgine [LaMICtal] 25 mg PO DAILY 10/13/18 01/17/21 Previous Rx's Medication Instructions Recorded Verapamil Sr [Isoptin Sr] 240 mg PO DAILY #30 tablet.er 10/02/14 Cyclobenzaprine [Flexeril] 10 mg PO TID #20 tab 07/25/19 Ibuprofen 600 mg PO TID #20 tablet 07/25/19 Cyclobenzaprine [Flexeril] 10 mg PO TID PRN #15 tab 09/19/21 Allergies Allergy/AdvReac Type Severity Reaction Status Date / Time amlodipine besylate AdvReac Vertigo/"Funny Verified 10/05/24 15:04 [From [facility]] feeling" Review of Systems ROS Other: All systems not noted in ROS Statement are negative. <Natalie Ruiz - Last Filed: 10/05/24 15:13> ROS Other: All systems not noted in ROS Statement are negative. <Jw De León - Last Filed: 10/06/24 00:10> ROS Statement: Those systems with pertinent positive or pertinent negative responses have been documented in the HPI. Review of Systems: CONST: Denies fever EYES: Denies blurry vision ENT: Denies nasal congestion C/V: Denies Chest pain RESP: Denies shortness of breath GI: Denies abdominal pain : Denies dysuria SKIN: Denies rash. MSK: Denies joint pain. NEURO: Denies headache (Jw De León) Past Medical History Past Medical History: Asthma, CVA/TIA, Diabetes Mellitus, Hyperlipidemia, Hyper tension, Osteoarthritis (OA) Additional Past Medical History / Comment(s): vitamin d and B12 deficiency. 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, bells palsy, back pain History of Any Multi-Drug Resistant Organisms: None Reported Past Surgical History: No Surgical Hx Reported Additional Past Surgical History / Comment(s): wisdom teeth Past Anesthesia/Blood Transfusion Reactions: No Reported Reaction Past Psychological History: Anxiety, Depression, Panic Disorder Smoking Status: Never smoker Past Alcohol Use History: None Reported Past Drug Use History: Marijuana - Past Family History Mother Family Medical History: Diabetes Mellitus <Natalie Ruiz - Last Filed: 10/05/24 15:13> General Exam Limitations: no limitations <Natalie Ruiz - Last Filed: 10/05/24 15:13> <Jw De León - Last Filed: 10/06/24 00:10> - General Exam Comments Initial Comments: Visual Physical Exam Vital signs reviewed General: Well-appearing, nontoxic, no acute distress. Head: Normocephalic, atraumatic Eyes: PERRLA, EOMI ENT: Airway patent Chest: Nonlabored breathing Skin: No visual rash, normal skin tone Neuro: Alert and oriented 3 Musculoskeletal: No gross abnormalities (Natalie Ruiz) General: Appears in no acute distress. HEAD: Normal with no signs of head trauma. EYES: EOMI ENT: Hearing grossly intact, normal oropharynx. RESPIRATORY: Clear breath sounds bilaterally. No wheezes, rales, or rhonchi. C/V: Regular rate and rhythm. S1 and S2 auscultated, no edema, peripheral pulses 2+ and intact throughout ABD: Abd is soft, nontender, nondistended EXT: no obvious deformity SKIN: No rashes or lesions observed on exposed skin. NEURO: Alert and oriented x 4. (Jw De León) Course Vital Signs 10/05/24 10/05/24 15:01 19:27 Temperature 97.6 F Pulse Rate 126 H 101 H Respiratory 14 18 Rate Blood Pressure 162/114 90/68 O2 Sat by Pulse 96 98 Oximetry Medical Decision Making <Natalie Ruiz - Last Filed: 10/05/24 15:13> - Lab Data Result diagrams: 10/05/24 16:15 10/05/24 16:15 <Jw De León - Last Filed: 10/06/24 00:10> - Medical Decision Making I performed the QuickNote portion of this chart. Signed Natalie Ruiz PA-C. (Natalie Ruiz) Was pt. sent in by a medical professional or institution (ELINOR Arreguin, DISTRIBUTION DESIGNER, urgent care, hospital, or long term...) When possible be specific @ -No Did you speak to anyone other than the patient for history (EMS, parent, family, police, friend...)? What history was obtained from this source @ -No Did you review nursing and triage notes (agree or disagree)? Why? @ -I reviewed and agree with nursing and triage notes Were old charts reviewed (outside hosp., previous admission, EMS record, old EKG, old radiological studies, urgent care reports/EKG's, long term records)? Report findings @ -No old charts were reviewed Differential Diagnosis (chest pain, altered mental status, abdominal pain women, abdominal pain men, vaginal bleeding, weakness, fever, dyspnea, syncope, h eadache, dizziness, GI bleed, back pain, seizure, CVA, palpatations, mental health, musculoskeletal)? @ -Dehydration, COVID, flu. This list is not all inclusive. EKG interpreted by me (3pts min.). @ -None done X-rays interpreted by me (1pt min.). @ -None done CT interpreted by me (1pt min.). @ -None done U/S interpreted by me (1pt. min.). @ -None done What testing was considered but not performed or refused? (CT, X-rays, U/S, labs)? Why? @ -None What meds were considered but not given or refused? Why? @ -None Did you discuss the management of the patient with other professionals (prof reynold i.e. ELINOR Arreguin, DISTRIBUTION DESIGNER, lab, RT, psych nurse, manager social services, nurse obgyn, teacher, client sales and service officer, correctional counselor/case manager)? Give summary @ -No Was smoking cessation discussed for >3mins.? @ -No Was critical care preformed (if so, how long)? @ -No Were there social determinants of health that impacted care today? How? (Homelessness, low income, unemployed, alcoholism, drug addiction, transportation, low edu. Level, literacy, decrease access to med. care, care home, rehab)? @ -No Was there de-escalation of care discussed even if they declined (Discuss DNR or withdrawal of care, Hospice)? DNR status @ -No What co-morbidities impacted this encounter? (DM, HTN, Smoking, COPD, CAD, Cancer, CVA, ARF, Chemo, Hep., AIDS, mental health diagnosis, sleep apnea, morbid obesity)? @ -None Was patient admitted / discharged? Hospital course, mention meds given and route, prescriptions, significant lab abnormalities, going to OR and other pertinent info. @ -Patient presents for nausea and vomiting and diarrhea over the course of 1 day. States she feels improved. Currently has no symptoms. Does appear mildly dehydrated and has a history of diabetes. We will obtain general labs. She will be given IV fluid bolus as well as IV Protonix and Zofran and Toradol. She was in agreement this plan. Has no other acute complaints at this time. Vitals within acceptable limits. Laboratory studies returned remarkable for mild dehydration with lactic acid of 2.4. Otherwise no evidence of DKA or other acute process. Viral swabs negative. Urine is still pending but patient states she is not . Discussed results with the patient. She would like to go home at this time and feels fine. Is asking for a work note for jury duty. Discharge vital signs are within acceptable limits. Blood pressure did drop and is softer however patient does have large arms and I do question the accuracy of the cuff. Patient is ambulatory with no acute complaints. She would like to go home. She was in agreement this plan. I instructed the patient to follow up with their PCP in the next 1-3 days. I explained that the patient should return to the emergency department if they experience any worsening symptoms. Strict return precautions were discussed with the patient. The patient expressed understanding of these instructions. I answered all questions that the patient had. The patient was discharged home in good condition with their prescriptions and follow up information. Undiagnosed new problem with uncertain prognosis? @ -No Drug Therapy requiring intensive monitoring for toxicity (Heparin, Nitro, Insulin, Cardizem)? @ -No Were any procedures done? @ -No Diagnosis/symptom? @ -Nausea, vomiting Acute, or Chronic, or Acute on Chronic? @ -Acute Uncomplicated (without systemic symptoms) or Complicated (systemic symptoms)? @ -Uncomplicated Side effects of treatment? @ -No Exacerbation, Progression, or Severe Exacerbation? @ -No Poses a threat to life or bodily function? How? (Chest pain, [place], [place], pneumonia, PE, COPD, DKA, ARF, appy, cholecystitis, CVA, Diverticulitis, Homicidal, Suicidal, threat to staff... and all critical care pts) @ -Unlikely at this time (Jw De León) - Lab Data Lab Results 10/05/24 10/05/24 10/05/24 Range/Units 15:00 16:15 16:15 WBC 6.3 (3.8-10.6) k/uL RBC 4.92 (3.80-5.40) m/uL Hgb 14.5 (11.4-16.0) gm/dL Hct 44.9 (34.0-46.0) % MCV 91.4 (80.0-100.0) fL MCH 29.4 (25.0-35.0) pg MCHC 32.2 (31.0-37.0) g/dL RDW 13.6 (11.5-15.5) % Plt Count 249 (150-450) k/uL MPV 7.8 Neutrophils % 78 % Lymphocytes % 15 % Monocytes % 4 % Eosinophils % 2 % Basophils % 0 % Neutrophils # 4.9 (1.3-7.7) k/uL Lymphocytes # 1.0 (1.0-4.8) k/uL Monocytes # 0.3 (0-1.0) k/uL Eosinophils # 0.1 (0-0.7) k/uL Basophils # 0.0 (0-0.2) k/uL Sodium 132 L (137-145) mmol/L Potassium 4.1 (3.5-5.1) mmol/L Chloride 96 L (98-107) mmol/L Carbon Dioxide 23 (22-30) mmol/L Anion Gap 13 mmol/L BUN 29 H (7-17) mg/dL Creatinine 0.99 (0.52-1.04) mg/dL Est GFR (CKD-EPI)AfAm 83 (>60 ml/min/1.73 sqM) Est GFR (CKD-EPI)NonAf 72 (>60 ml/min/1.73 sqM) Glucose 133 H (74-99) mg/dL Lactic Ac Sepsis Rflx Plasma Lactic Acid Jeffrey (0.7-2.0) mmol/L Calcium 8.2 L (8.4-10.2) mg/dL Total Bilirubin 0.5 (0.2-1.3) mg/dL AST 25 (14-36) U/L ALT 15 (4-34) U/L Alkaline Phosphatase 53 (38-126) U/L Total Protein 6.6 (6.3-8.2) g/dL Albumin 3.7 (3.5-5.0) g/dL Amylase 35 (30-110) U/L Lipase 26 (23-300) U/L Acetone, Qual Negative (Negative) Influenza Type A (PCR) (Not Detectd) Influenza Type B (PCR) (Not Detectd) RSV (PCR) (Not Detectd) SARS-CoV-2 (PCR) (Not Detectd) 10/05/24 10/05/24 10/05/24 Range/Units 16:15 16:58 17:00 WBC (3.8-10.6) k/uL RBC (3.80-5.40) m/uL Hgb (11.4-16.0) gm/dL Hct (34.0-46.0) % MCV (80.0-100.0) fL MCH (25.0-35.0) pg MCHC (31.0-37.0) g/dL RDW (11.5-15.5) % Plt Count (150-450) k/uL MPV Neutrophils % % Lymphocytes % % Monocytes % % Eosinophils % % Basophils % % Neutrophils # (1.3-7.7) k/uL Lymphocytes # (1.0-4.8) k/uL Monocytes # (0-1.0) k/uL Eosinophils # (0-0.7) k/uL Basophils # (0-0.2) k/uL Sodium (137-145) mmol/L Potassium (3.5-5.1) mmol/L Chloride (98-107) mmol/L Carbon Dioxide (22-30) mmol/L Anion Gap mmol/L BUN (7-17) mg/dL Creatinine (0.52-1.04) mg/dL Est GFR (CKD-EPI)AfAm (>60 ml/min/1.73 sqM) Est GFR (CKD-EPI)NonAf (>60 ml/min/1.73 sqM) Glucose (74-99) mg/dL Lactic Ac Sepsis Rflx Y Plasma Lactic Acid Jeffrey 2.4 H* (0.7-2.0) mmol/L Calcium (8.4-10.2) mg/dL Total Bilirubin (0.2-1.3) mg/dL AST (14-36) U/L ALT (4-34) U/L Alkaline Phosphatase (38-126) U/L Total Protein (6.3-8.2) g/dL Albumin (3.5-5.0) g/dL Amylase (30-110) U/L Lipase (23-300) U/L Acetone, Qual (Negative) Influenza Type A (PCR) Not Detected (Not Detectd) Influenza Type B (PCR) Not Detected (Not Detectd) RSV (PCR) Not Detected (Not Detectd) SARS-CoV-2 (PCR) Not Detected (Not Detectd) Disposition <Natalie Ruiz - Last Filed: 10/05/24 15:13> Is patient prescribed a controlled substance at d/c from ED?: No Time of Disposition: 19:13 <Jw De León - Last Filed: 10/06/24 00:10> Clinical Impression: Nausea and vomiting Disposition: HOME SELF-CARE Condition: Good Instructions (If sedation given, give patient instructions): Acute Nausea and Vomiting (ED) Referrals: Mango Garcia [Primary Care Provider] - 1-2 days
[2024-10-05 16:35] LABS: Basophils % (A) 0 %; Eosinophils # (A) 0.1 k/uL (0-0.7); Eosinophils % (A) 2 %; HCT 44.9 % (34.0-46.0); HGB 14.5 gm/dL (11.4-16.0); Lymphocytes % (A) 15 %; MCH 29.4 pg (25.0-35.0); MCHC 32.2 g/dL (31.0-37.0); MCV 91.4 fL (80.0-100.0); Mean Platelet Volume 7.8; Monocytes # (A) 0.3 k/uL (0-1.0); Monocytes % (A) 4 %; Neutrophils # (A) 4.9 k/uL (1.3-7.7); Neutrophils % (A) 78 %; Platelet Count 249 k/uL (150-450); RBC 4.92 m/uL (3.80-5.40); RDW 13.6 % (11.5-15.5); WBC 6.3 k/uL (3.8-10.6)
[2024-10-05 16:47] LABS: Potassium 4.1 mmol/L (3.5-5.1)
[2024-10-05 16:48] LABS: ALT 15 U/L (4-34); AST 25 U/L (14-36); African American GFR (CKD) 83 (>60 ml/min/1.73 sqM); Albumin 3.7 g/dL (3.5-5.0); Alkaline Phosphatase 53 U/L (38-126); Amylase 35 U/L (30-110); Anion Gap 13 mmol/L; Blood Urea Nitrogen 29 mg/dL (7-17); Calcium 8.2 mg/dL (8.4-10.2); Carbon Dioxide 23 mmol/L (22-30); Chloride 96 mmol/L (98-107); Glucose 133 mg/dL (74-99); Lipase 26 U/L (23-300); Non-African American GFR(CKD) 72 (>60 ml/min/1.73 sqM); Sodium 132 mmol/L (137-145); Total Bilirubin 0.5 mg/dL (0.2-1.3); Total Protein 6.6 g/dL (6.3-8.2)
[2024-10-05] MEDS: KETOROLAC 15 MG/ML 1 ML VIAL IVP STA (16:52)
[2024-10-05] MEDS: ONDANSETRON 4 MG/2 ML VIAL IVP STA (16:52)
[2024-10-05] MEDS: SODIUM CHLORIDE 0.9% 1,000 ML IV ONE (16:53)
[2024-10-05] MEDS: PANTOPRAZOLE 40 MG/10 ML VIAL IVP STA (16:53)
[2024-10-05 17:59] LABS: Influenza A Not Detected (Not Detectd); Influenza B Not Detected (Not Detectd); RSV Not Detected (Not Detectd)
[2024-10-05] MEDS ORDERED: ONDANSETRON 4 MG ODT STARTER PACK 2 TAB BTL PO STA (19:12)
[2024-10-05 19:28] VITALS: BP 90/68; PULSE 101; RESP 18
== END 2024-10-05 19:28 | disposition home or self-care (01) ==
LOC: EC 14:33
DX: R11.2 Nausea with vomiting, unspecified (principal); Z11.52 Encounter for screening for COVID-19; Z88.8 Allergy status to other drugs, medicaments and biological substances
CPT/HCPCS: 36415; 80053; 82150; 82009; 83605; 83690; 85025; 87636; 99284; 96374; 96375 ×2; 96361 ×3; J2405; J1885; J2470

== ENCOUNTER 2024-10-30 06:19 | Emergency (ER) | payer OTHER ==
[2024-10-30 06:25] VITALS: BP 142/81; PULSE 94; RESP 17; TEMP 97.4
--- NOTE | 2024-10-30 06:36 | ED ---
ENT HPI - General Chief complaint: Dental/Oral Stated complaint: tooth pain Time Seen by Provider: 10/30/24 06:30 Source: patient, RN notes reviewed Mode of arrival: wheelchair Limitations: no limitations - History of Present Illness Initial comments: 39-year-old female presents emergency department complaint abdominal pain. Patient states started overnight. She recently saw her dentist couple weeks ago was placed on antibiotics improved she was told that tooth need to be pulled. Patient states she physic it is coming back pain is intense on her alleviated with [id number] medications. No fevers or chills no difficulty swallowing no other complaints. - Related Data Home Medications Medication Instructions Recorded Confirmed Meloxicam [Mobic] 15 mg PO DAILY 05/31/14 01/17/21 sitaGLIPtin PHOS/metFORMIN HCL 1 tab PO AC-BID 05/31/14 01/17/21 [Janumet 50-1,000 mg Tablet] Aspirin EC [Ecotrin Low Dose] 81 mg PO DAILY 02/15/18 01/17/21 Atorvastatin Calcium [Lipitor] 20 mg PO HS 02/15/18 01/17/21 Clopidogrel Bisulfate [Plavix] 75 mg PO DAILY 02/15/18 01/17/21 hydroCHLOROthiazide [Hydrodiuril] 25 mg PO DAILY 02/15/18 01/17/21 lisinopriL [Zestril] 20 mg PO DAILY 02/15/18 01/17/21 Cholecalciferol [Vitamin D3] 1,000 unit PO DAILY 10/13/18 01/17/21 Cyanocobalamin (Vitamin B-12) 1,000 mcg PO DAILY 10/13/18 01/17/21 [Vitamin B-12] Empagliflozin [Jardiance] 25 mg PO DAILY 10/13/18 01/17/21 Escitalopram [Lexapro] 20 mg PO DAILY 10/13/18 01/17/21 Loratadine [Claritin] 10 mg PO DAILY 10/13/18 01/17/21 QUEtiapine [SEROquel] 50 mg PO HS 10/13/18 01/17/21 busPIRone HCl [Buspar] 10 mg PO BID 10/13/18 01/17/21 lamoTRIgine [LaMICtal] 25 mg PO DAILY 10/13/18 01/17/21 Previous Rx's Medication Instructions Recorded Verapamil Sr [Isoptin Sr] 240 mg PO DAILY #30 tablet.er 10/02/14 Cyclobenzaprine [Flexeril] 10 mg PO TID #20 tab 07/25/19 Ibuprofen 600 mg PO TID #20 tablet 07/25/19 Cyclobenzaprine [Flexeril] 10 mg PO TID PRN #15 tab 09/19/21 Amoxic-Pot Clav 875-125Mg 1 tab PO Q12HR #20 tab 10/30/24 [Augmentin 875-125] Ibuprofen [Motrin] 600 mg PO Q8HR PRN #20 tab 10/30/24 Allergies Allergy/AdvReac Type Severity Reaction Status Date / Time amlodipine besylate AdvReac Vertigo/"Funny Verified 10/30/24 06:21 [From [facility]] feeling" Review of Systems ROS Statement: Those systems with pertinent positive or pertinent negative responses have been documented in the HPI. ROS Other: All systems not noted in ROS Statement are negative. Past Medical History Past Medical History: Asthma, CVA/TIA, Diabetes Mellitus, Hyperlipidemia, Hypertension, Osteoarthritis (OA) Additional Past Medical History / Comment(s): vitamin d and B12 deficiency. 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, bells palsy, back pain History of Any Multi-Drug Resistant Organisms: None Reported Past Surgical History: No Surgical Hx Reported Additional Past Surgical History / Comment(s): wisdom teeth Past Anesthesia/Blood Transfusion Reactions: No Reported Reaction Past Psychological History: Anxiety, Depression, Panic Disorder Smoking Status: Never smoker Past Alcohol Use History: None Reported Past Drug Use History: Marijuana - Past Family History Mother Family Medical History: Diabetes Mellitus General Exam Limitations: no limitations General appearance: alert, in no apparent distress Head exam: Present: atraumatic, normocephalic, normal inspection Eye exam: Present: normal appearance, PERRL, EOMI. Absent: scleral icterus, conjunctival injection, periorbital swelling ENT exam: Present: mucous membranes moist, TM's normal bilaterally, normal external ear exam. Absent: normal exam, normal oropharynx (Dental caries, no drainable abscess minimal erythema) Neck exam: Present: normal inspection, full ROM. Absent: tenderness, meningismus, lymphadenopathy Respiratory exam: Present: normal lung sounds bilaterally. Absent: respiratory distress, wheezes, rales, rhonchi, stridor Cardiovascular Exam: Present: regular rate, normal rhythm, normal heart sounds. Absent: systolic murmur, diastolic murmur, rubs, gallop, clicks Course Vital Signs 10/30/24 06:21 Temperature 97.4 F L Pulse Rate 94 Respiratory 17 Rate Blood Pressure 142/81 O2 Sat by Pulse 98 Oximetry Medical Decision Making - Medical Decision Making Was pt. sent in by a medical professional or institution (ELINOR Arreguin, OIL PIPE INSPECTOR HELPER, urgent care, hospital, or senior care...) When possible be specific @ -No Did you speak to anyone other than the patient for history (EMS, parent, family, police, friend...)? What history was obtained from this source @ -No Did you review nursing and triage notes (agree or disagree)? Why? @ -I reviewed and agree with nursing and triage notes Were old charts reviewed (outside hosp., previous admission, EMS record, old EKG, old radiological studies, urgent care reports/EKG's, senior care records)? Report findings @ -No old charts were reviewed Differential Diagnosis (chest pain, altered mental status, abdominal pain women, abdominal pain men, vaginal bleeding, weakness, fever, dyspnea, syncope, headache, dizziness, GI bleed, back pain, seizure, CVA, palpatations, mental health, musculoskeletal)? @ - dental abscess, dental infection, infected molar, dental fracture EKG interpreted by me (3pts min.). @ -[None X-rays interpreted by me (1pt min.). @ -None done CT interpreted by me (1pt min.). @ -None done U/S interpreted by me (1pt. min.). @ -None done What testing was considered but not performed or refused? (CT, X-rays, U/S, labs)? Why? @ -None What meds were considered but not given or refused? Why? @ -None Did you discuss the management of the patient with other professionals (professionals i.e. ELINOR Arreguin, OIL PIPE INSPECTOR HELPER, lab, RT, psych nurse, social group worker, mussel farmer, teacher, technology officer, foster care case manager)? Give summary @ -No Was smoking cessation discussed for >3mins.? @ -No Was critical care preformed (if so, how long)? @ -No Were there social determinants of health that impacted care today? How? (H omelessness, low income, unemployed, alcoholism, drug addiction, transportation, low edu. Level, literacy, decrease access to med. care, group home, rehab)? @ -No Was there de-escalation of care discussed even if they declined (Discuss DNR or withdrawal of care, Hospice)? DNR status @ -No What co-morbidities impacted this encounter? (DM, HTN, Smoking, COPD, CAD, Cancer, CVA, ARF, Chemo, Hep., AIDS, mental health diagnosis, sleep apnea, morbid obesity)? @ -None Was patient admitted / discharged? Hospital course, mention meds given and route, prescriptions, significant lab abnormalities, going to OR and other pertinent info. @ -Discharge patient has dental carry, no drainable abscess, no facial swelling no abscess noted. Patient placed on antibiotics 3 weeks ago will continue antibiotics at this point she has a follow-up ointment in 10 days with dentist advised to follow-up sooner return parameters sowmya. Patient provided anti- inflammatories, analgesics. Undiagnosed new problem with uncertain prognosis? @ -No Drug Therapy requiring intensive monitoring for toxicity (Heparin, Nitro, Insulin, Cardizem)? @ -No Were any procedures done? @ -No Diagnosis/symptom? @ -Toothache, dental infection Acute, or Chronic, or Acute on Chronic? @ -Acute Uncomplicated (without systemic symptoms) or Complicated (systemic symptoms)? @Uncomplicated Side effects of treatment? @ -No Exacerbation, Progression, or Severe Exacerbation? @ -No Poses a threat to life or bodily function? How? (Chest pain, [place], [place], pneumonia, PE, COPD, DKA, ARF, appy, cholecystitis, CVA, Diverticulitis, Homicidal, Suicidal, threat to staff... and all critical care pts) @ -No Disposition Clinical Impression: Toothache, Dental infection Disposition: HOME SELF-CARE Condition: Stable Instructions (If sedation given, give patient instructions): Toothache (ED) Additional Instructions: Please return to the Emergency Department if symptoms worsen or any other concerns. Prescriptions: Amoxic-Pot Clav 875-125Mg [Augmentin 875-125] 1 tab PO Q12HR #20 tab Ibuprofen [Motrin] 600 mg PO Q8HR PRN #20 tab PRN Reason: Pain Is patient prescribed a controlled substance at d/c from ED?: No Referrals: Mango Garcia [Primary Care Provider] - 1-2 days Time of Disposition: 06:35
[2024-10-30] MEDS: HYDROcodone/APAP 5-325MG 1 EACH TAB PO STA (06:43)
[2024-10-30] MEDS: AMOXIC-POT CLAV 875-125MG 1 EACH TAB PO STA (06:43)
[2024-10-30] MEDS: ACET/COD 300 MG/30 MG STARTER PACK 6 TAB BTL PO STA (06:44)
== END 2024-10-30 06:46 | disposition home or self-care (01) ==
LOC: EC 06:19
DX: K04.7 Periapical abscess without sinus (principal); Z88.8 Allergy status to other drugs, medicaments and biological substances; Z86.73 Personal history of transient ischemic attack (TIA), and cerebral infarction without residual deficits
CPT/HCPCS: 99282